=== PATIENT | female | born 1945 | race Caucasian/White ===

== ENCOUNTER 2021-01-20 10:34 | Inpatient (IN) | payer OTHER, SELFPAY ==
[2021-01-20] VITALS (34 sets, daily range): BP systolic 103–136; BP diastolic 42–92; PULSE 75–100; RESP 16–36; TEMP 36.9–37.4; O2SAT 92–99; BMI 52.2
--- NOTE | ~2021-01-20 | XR_ITS ---
EXAMINATION: XR chest 1V portable EXAM DATE: 01/20/2021 10:59 INDICATION: Shortness of breath. TECHNIQUE: Portable AP frontal chest x-ray was obtained. There is no prior study for comparison. FINDINGS: There is cardiomegaly and pulmonary vascular congestion. There is indistinct reticulation, some more focal right upper lung zone density. Differential diagnosis includes edema and pneumonia. P lease clinically correlate. No sizable pleural effusion. No pneumothorax. IMPRESSION: 1. Findings consistent with CHF exacerbation. 2. Ill-defined airspace disease more likely edema. Reviewed, dictated and finalized at location A. NICU
--- NOTE | ~2021-01-20 | XR_ITS ---
EXAMINATION: XR chest 1V portable DATE: 01/24/2021 13:16 INDICATION: Shortness of breath. TECHNIQUE: A single frontal view of the chest was obtained. COMPARISON: Chest single view 01/20/2021 FINDINGS: There are airspace opacities in right perihilar region. No pleural effusion or pneumothorax . Cardiomegaly is noted. IMPRESSION: 1. Improved airspace opacities in right perihilar region, consistent with pulmonary edema versus pneu monia. 2. Cardiomegaly. Reviewed, dictated and finalized at location A. ATRIC REGISTERED NURSE IMPRESSION: 1. Improved airspace opacities in right perihilar region, consistent with pulmo nary edema versus pneumonia. 2. Cardiomegaly.
--- NOTE | 2021-01-20 10:45 | ECG_ITS ---
Measurements Intervals [place] Rate: 89 P: MS: 0 QRS: 69 QRSD: 87 T: 63 QT: 385 QTc: 469 Interpretive Statements ATRIAL FIBRILLATION LOW QRS VOLTAGE IN PRECORDIAL LEADS ABNORMAL ECG Electronically Signed On 01-20-2021 14:19:59 INSTALL AND REPAIR TECHNICIAN by Marbin Garcia D.O.
[2021-01-20 11:09] LABS: Basophils Percent Auto 0.5 % (0.2-1.2); Eosinophils Absolute Auto 0.5 K/mm3 (0-0.3); Eosinophils Percent Auto 6.4 % (0-4.4); Hemoglobin 11.9 g/dL (12.0-15.0); Immature Granulocyte Absolute 0.07 K/mm3 (0.00-0.031); Immature Granulocyte Percent A 0.9 % (0-0.5); Lymphocytes Absolute Auto 1.61 K/mm3 (0.9-3.2); Lymphocytes Percent Auto 19.6 % (18.3-44.2); Mean Corpuscular Hemoglobin 25.9 pg (26-34); Mean Corpuscular Volume 89.1 fl (80-100); Mean Platelet Volume 8.9 fl (7.4-10.4); Monocytes Absolute Auto 0.8 K/mm3 (0.1-0.6); Monocytes Percent Auto 10.2 % (2.6-8.5); Neutrophils Absolute Auto 5.1 K/mm3 (1.3-6.7); Neutrophils Percent Auto 62.4 % (45.5-73.1); Platelet Count Result 337 k/mm3 (150-375); Red Cell Distribution Width 17.5 % (11.5-14.5); White Blood Count 8.2 K/mm3 (4.5-10.0)
[2021-01-20 11:24] LABS: Blood Urea Nitrogen 14 mg/dL (7-17); Calcium 9.3 mg/dL (8.4-10.2); Carbon Dioxide > 40 mmol/L (22-30); Chloride 96 mmol/L (98-107); Estimated CRCL calculation 98 ml/min; Estimated Glomerular Filt Rate > 60; Glucose 111 mg/dL (65-105); Potassium 3.1 mmol/L (3.4-5.0); Sodium 142 mmol/L (137-145)
[2021-01-20 11:49] LABS: Alveolar/Arterial O2 Gradient 109.3 mmHg; Base Excess ABG 12.6 mEq/l (+/-2.0); Fractional Inspired Oxygen 36 %; Oxygen Saturation ABG 93.7 % (95.0-100.0); Oxyhemoglobin 91.6 % THb (90.0-100.0); PO2 ABG 70.9 mmHg (80.0-100.0); PO2 FiO2 Ratio Arterial Blood 1.97 %; Total Hemoglobin 12.4 g/dL (12.0-18.0); pH ABG 7.401 (7.350-7.450)
[2021-01-20 11:51] LABS: PCO2 ABG 65.9 mmHg (35.0-45.0); Site Drawn LEFT RADIAL
[2021-01-20 11:52] LABS: Device NASAL CANNULA; Modified Allen's Test Pass
[2021-01-20 12:08] LABS: NT Pro B Type Natriuretic Pept 1250 PG/ML (5-100); Troponin I < 0.012 ng/mL (0.000-0.034)
[2021-01-20] MEDS: IPRATROPIUM BR 0.02% INH SOLN 0.5 MG/2.5 ML VIAL INHALATION ×2 (12:39→20:53)
[2021-01-20] MEDS: ALBUTEROL SULFATE NEB 2.5 MG/0.5 ML INH 5 MG INHALATION ×2 (12:39→21:18)
[2021-01-20] MEDS: POTASSIUM CHLORIDE 20 MEQ PACKET (FOR LIQUID) 40 MEQ PO (12:57)
[2021-01-20] MEDS: BUMETANIDE INJ 1 MG/4 ML VIAL 2 MG IV PUSH (13:33)
--- NOTE | 2021-01-20 14:05 | ED.SOB ---
HPI - SOB/Dyspnea General Chief Complaint: Shortness of Breath/Dyspnea Stated Complaint: sob Time Seen by Provider: 01/20/21 11:22 Source: patient and family Mode of arrival: EMS Limitations: no limitations History of Present Illness HPI Narrative: 75-year-old female History of COPD and is always on 1.5 to 2 L of oxygen nasal cannula Patient states that she was not really aware of anything wrong but that at her long term facility they were unhappy with her O2 saturations and had to turn her up to 4 L She was not experiencing greater dyspnea than usual, new cough, excessive wheezing, or new swelling in her legs Daughter states that she is a chronic CO2 retainer Appears to be anticoagulated for chronic A. fib as well No old records here to compare to though Related Data Home Medications Medication Instructions Recorded Confirmed Incruse Ellipta 01/20/21 albuterol sulfate [ProAir HFA] 1 puff INHALATION QID PRN 01/20/21 ascorbic acid (vitamin C) 250 mg PO DAILY 01/20/21 cholecalciferol (vitamin D3) 50 mcg PO DAILY 01/20/21 docusate sodium 100 mg PO DAILY 01/20/21 fluticasone propion-salmeterol 1 inh INHALATION Q12H 01/20/21 [Advair Diskus] furosemide 40 mg PO DAILY 01/20/21 gabapentin 300 mg PO TID 01/20/21 glucosamine sulfate 500 mg PO DAILY 01/20/21 guaifenesin [Mucinex] 1,200 mg PO BID 01/20/21 hydrocortisone 1 applic TOPICAL QID PRN 01/20/21 ipratropium-albuterol 3 ml INHALATION Q6H PRN 01/20/21 levothyroxine 175 mcg PO DAILY 01/20/21 magnesium [magnesium gluconate] 400 mg PO DAILY 01/20/21 xdgvqcskgmoe-mfp-zfnc-FA-vit K tablet PO 01/20/21 [Adults Multivitamin] nebivolol [Bystolic] 10 mg PO DAILY 01/20/21 omega 0-ccs-ucr-fish oil [Fish Oil] cap 01/20/21 oxycodone-acetaminophen 1 tablet PO Q6H PRN 01/20/21 phenyleph-shark cmj-indm-klh 1 applic RECTAL BID PRN 01/20/21 [Preparation H] polyethylene glycol 3350 [Miralax] 17 g PO DAILY 01/20/21 polysaccharide iron complex 150 mg PO DAILY 01/20/21 [Polysaccharide Iron] psyllium husk [Metamucil] 1 tbsp PO DAILY 01/20/21 rivaroxaban [Xarelto] 20 mg PO DAILY 01/20/21 roflumilast [Daliresp] 500 mcg PO DAILY 01/20/21 sertraline 50 mg PO DAILY 01/20/21 sodium chloride [[place] Nasal] 2 spray INTRANASAL QID 01/20/21 Allergies Allergy/AdvReac Type Severity Reaction Status Date / Time amoxicillin Allergy Unknown Verified 01/20/21 11:12 cetirizine [From Zyrtec] Allergy Unknown Verified 01/20/21 11:12 pseudoephedrine Allergy Unknown Verified 01/20/21 11:12 [From Zyrtec-D] sulfasalazine Allergy Unknown Verified 01/20/21 11:12 Review of Systems Review of Systems: All systems reviewed & are unremarkable except as noted in HPI and below Constitutional: Constitutional: Denies chills, Reports fatigue, Denies fever(s), Denies headache(s) and Reports weakness Eyes: Eyes: Reports no additional eye complaints and Denies change in vision ENT: Denies headache(s), Denies epistaxis, Denies nasal congestion and Denies sore throat Cardiovascular: Cardiovascular: Denies chest pain, Denies leg edema, Denies palpitations and Denies dyspnea Respiratory: Respiratory: Denies cough, Denies dyspnea and Reports wheezing Gastrointestinal: Gastrointestinal: Denies abdominal pain, Denies diarrhea, Denies nausea and Denies vomiting Genitourinary: Genitourinary: Denies hematuria, Denies urinary frequency and Denies dysuria Musculoskeletal: Musculoskeletal: Reports back pain, Denies deformity, Denies arthralgias, Denies joint swelling, Denies muscle weakness and Denies numbness Integumentary/Breasts: Skin/Breast: Denies rash and Denies wounds Neurologic: Denies headache(s), Denies focal weakness, Denies numbness and Reports weakness Psychiatric: Psychiatric: Reports no additional psychiatric complaints Endocrine: Endocrine: Reports fatigue and Denies palpitations Hematologic/Lymphatic: Hematologic/Lymphatic: Reports easy bleeding and Denies ea
[2021-01-20 14:09] LABS: Add Urine Microscopic? YES; Appearance Urine Turbid (Clear); Bacteria Urine 4+ /hpf; Bilirubin Urine Negative (Negative); Blood Urine 2+ (Negative); Color Urine Yellow (Yellow); Glucose Urine UA Negative (Negative); Ketones Urine Negative (Negative); Leukocyte Esterase Ur 3+ LEU/UL (Negative); Mucus Urine Heavy /lpf; Nitrate Urine Positive (Negative); Protein Urine 3+ mg/dL (Negative); RBC Urine >75 /hpf (0-2); Specific Grav Ur 1.012 (1.001-1.035); Urobilinogen Urine Negative mg/dL (<2.0); WBC Clumps Urine Present /HPF; WBC Urine >75 /hpf
[2021-01-20] MEDS: HYDROcodone/acetaminophen (*CRX) 5-325 MG TABLET 1 TAB PO (17:31)
--- NOTE | 2021-01-20 17:55 | ADMGEN ---
This patient, Tammy Orozco, was admitted to [facility] Room 326-01 @ 1750 . Patient/family oriented to hospital policies and general routines including ID bracelet, bed and alarms, visiting hours, pain management, procedures, bathroom and other care routines, personal items, smoking policy, room service/diet, and visiting hours. Information on how to activate the Rapid Response Team has been discussed. Patient/Family are encouraged to report perceived risks to care and to ask questions if they do not understand what they are told or what they should do.
[2021-01-20] MEDS: LACTATED RINGERS 1,000 ML 30 ML IV CONT (18:15)
--- NOTE | 2021-01-20 18:30 | PM.IMHP ---
H&P: HPI History of Present Illness Date/Time: 01/20/21 18:30 Chief Complaint: Hypoxia. Narrative: This is a 76-year-old female with chronic hypoxic and hypercapnic respiratory failure on home oxygen, asthma, obstructive sleep apnea, atrial fibrillation, congestive heart failure, hypertension, and several other comorbidities who presented to the emergency department earlier today via EMS from [facility] with reports of hypoxia. The patient is a fair historian and reports that she has some short-term memory loss and tells me that the following history might not always be accurate. She lives in [place], [place] and typically goes to [facility] however it sounds like she has been hospitalized in several hospitals throughout the region recently although she cannot really tell me why she has been admitted to these hospitals. She is currently doing rehab at [facility] and it sounds like she was supposed to be discharged in the next several days. Today staff at the rehab facility decided to sent her in for evaluation as she was requiring 4 liters of oxygen as opposed to her baseline 1.5 to 2 liters. The patient herself has not noticed any change in her breathing and does not necessarily feel any more short of breath than usual with activity. The only complaint she has at the time my evaluation is some mild suprapubic discomfort and she does note having dysuria recently. She denies fever, chills, sweats, sinus congestion, otalgia, odynophagia, cough, chest pain, pleuritic pain, orthopnea, PND, lower extremity edema, nausea, vomiting, and diarrhea. Review of Systems Review of Systems: Narrative: Twelve systems are reviewed with pertinent positives and negatives as per HPI. Somewhat limited given her self-reported memory loss. Except as documented, all other systems were reviewed and are negative. [facility] Past Medical History Medical History (Updated 01/20/21 @ 22:41 by Kaur Michael PA-C) Atrial fibrillation Chronic anticoagulation Chronic obstructive pulmonary disease Chronic respiratory failure with hypoxia and hypercapnia Congestive heart failure Dyslipidemia Hypertension Hypothyroidism Morbid obesity Obstructive sleep apnea on CPAP On home oxygen therapy Renal disease Spinal stenosis Surgical History Surgical History (Updated 01/20/21 @ 22:31 by Kaur Michael PA-C) History of foot surgery Removal of bone spurs. Family History Family History Mother Cerebrovascular accident Father H/O heart bypass surgery Sibling Double kidney Social History Social History (Updated 01/20/21 @ 22:32 by Kaur Michael PA-C) Social History: The patient is currently undergoing rehab at [facility]. 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 She has an electric scooter at home. She smoked a pack of cigarettes per day for about 30 years and quit some time ago. No alcohol or illicit substance abuse. She designates her and her daughter Tayla Miles as her surrogate decision makers and she wishes to be a full code. Smoking packs per day: 1 Smoking cigarettes per day: 20.0 Years smoked: 30 Smoking pack-years: 30.00 Smoking status: Former smoker Tobacco type: cigarettes Alcohol intake: never Substance use: never Gender identity (if verbalized by the patient): Female Spiritual care concerns: No Meds Home Medications and Allergies Home Medications Medication Instructions Recorded Confirmed Type Incruse Ellipta 62.5 mcg INHALATION DAILY 01/20/21 01/20/21 History albuterol sulfate [ProAir HFA] 1 - 2 puff INHALATION QID PRN 01/20/21 01/20/21 History ascorbic acid (vitamin C) 250 mg PO DAILY 01/20/21 01/20/21 History cholecalciferol (vitamin D3) 50 mcg PO DAILY 01/20/21 01/20/21 History docusate sodium 100 mg PO DAILY 01/20/2101/20
[2021-01-20] MEDS: GABAPENTIN 300 MG CAPSULE PO (23:53)
[2021-01-20] MEDS: guaiFENesin 12 HR 600 MG TABCR 1200 MG PO (23:53)
[2021-01-21] VITALS (17 sets, daily range): BP systolic 109–142; BP diastolic 60–87; PULSE 73–94; RESP 18–24; TEMP 36.4–37.3; O2SAT 92–94
[2021-01-21] MEDS: IPRATROPIUM BR 0.02% INH SOLN 0.5 MG/2.5 ML VIAL INHALATION ×4 (02:35→22:29)
[2021-01-21] MEDS: ALBUTEROL SULFATE NEB 2.5 MG/0.5 ML INH 5 MG INHALATION ×4 (02:35→22:29)
[2021-01-21] MEDS: LEVOTHYROXINE SODIUM 75 MCG TABLET PO (05:43)
[2021-01-21] MEDS: LEVOTHYROXINE SODIUM 100 MCG TABLET PO (05:44)
[2021-01-21 06:17] LABS: Alanine Aminotransferase 11 U/L (4-35); Alkaline Phosphatase 40 U/L (38-126); Aspartate Amino Transferase 17 U/L (14-36); Bilirubin,Total 0.2 mg/dL (0.2-1.3); Blood Urea Nitrogen 15 mg/dL (7-17); Calcium 8.6 mg/dL (8.4-10.2); Carbon Dioxide > 40 mmol/L (22-30); Chloride 96 mmol/L (98-107); Estimated CRCL calculation 75 ml/min; Estimated Glomerular Filt Rate > 60; Glucose 170 mg/dL (65-105); Magnesium 1.6 mg/dL (1.6-2.3); Potassium 3.2 mmol/L (3.4-5.0); Sodium 143 mmol/L (137-145)
[2021-01-21 06:56] LABS: Hematocrit 37.6 % (37.0-47.0); Hemoglobin 11.1 g/dL (12.0-15.0); Mean Corpuscular HGB Conc 29.5 g/dl (32-36); Mean Corpuscular Hemoglobin 25.8 pg (26-34); Mean Corpuscular Volume 87.4 fl (80-100); Mean Platelet Volume 9.5 fl (7.4-10.4); Platelet Count Result 380 k/mm3 (150-375); Red Cell Distribution Width 17.2 % (11.5-14.5); White Blood Count 9.1 K/mm3 (4.5-10.0)
[2021-01-21 07:47] LABS: Free T4 Free Thyroxine Reflex 1.52 ng/dL (0.78-2.19)
[2021-01-21] MEDS: FLUTICASONE/SALMETEROL 45-21 MCG INHALER 1 PUFF 2 PUFF INHALATION ×2 (08:18→22:29)
[2021-01-21] MEDS: ROFLUMILAST 500 MCG TABLET PO (08:56)
[2021-01-21] MEDS: guaiFENesin 12 HR 600 MG TABCR 1200 MG PO ×2 (08:57→20:37)
[2021-01-21] MEDS: GABAPENTIN 300 MG CAPSULE PO ×3 (08:57→16:28)
[2021-01-21] MEDS: MULTIVITAMINS /C LUTEIN (CENTRUM SILVER) TABLET *BKC 1 TAB PO (08:58)
[2021-01-21] MEDS: NEBIVOLOL HCL 5 MG TABLET 10 MG PO (08:58)
[2021-01-21] MEDS: POTASSIUM CHLORIDE 20 MEQ TABLET.ER PO (08:59)
[2021-01-21] MEDS: POTASSIUM CHLORIDE 20 MEQ TABLET 40 MEQ PO (08:59)
[2021-01-21] MEDS: MAGNESIUM OXIDE 400 MG TABLET PO ×2 (08:59→09:02)
[2021-01-21] MEDS: FUROSEMIDE INJ 40 MG/4 ML VIAL IV PUSH ×2 (08:59→16:28)
[2021-01-21] MEDS: ASCORBIC ACID 250 MG TABLET PO (09:00)
[2021-01-21] MEDS: SERTRALINE HCL 50 MG TABLET PO (09:00)
[2021-01-21] MEDS: OMEGA 3 POLYUNSAT FATTY ACIDS 1 GM CAP PO (09:00)
[2021-01-21] MEDS: CHOLECALCIFEROL 1,000 UNITS TABLET 1000 UNITS PO (09:00)
[2021-01-21] MEDS: SALINE 0.65% NAS SOLN 44 ML BTL 1 SPRAY NASAL ×3 (09:00→16:29)
[2021-01-21] MEDS: POLYSACCHARIDE IRON COMPLEX 150 MG CAPSULE PO (09:00)
[2021-01-21] MEDS: predniSONE 20 MG TABLET 60 MG PO (09:01)
[2021-01-21 09:07] LABS: Total Triiodothyronine (T3) 0.68 NG/ML (0.97-1.69)
[2021-01-21] MEDS: ACETAMINOPHEN 325 MG TABLET 650 MG PO (12:49)
--- NOTE | 2021-01-21 13:31 | PM.IMPN ---
Progress Note: A&P Assessment and Plan (1) Acute on chronic respiratory failure with hypoxia and hypercapnia: Code(s): J96.21 - Acute and chronic respiratory failure with hypoxia; J96.22 - Acute and chronic respiratory failure with hypercapnia Status: Acute Assessment and Plan: 01/21/21 13:31 patient is 75-year-old morbidly obese female had been at local rehab for physical therapy and was found to be desaturate and requiring 4 L of oxygen compare to her regular 2 L of oxygen and patient was sent to emergency department for further evaluation, patient states she did not feel as short of breath as she appeared however with exertion patient was requiring 4 L of oxygen, chest x-ray shows pulmonary edema, and no echo is available is patient does not come to hospital regularly, patient being diuresed IV Lasix 40 mg b.i.d., patient also complains dysuria and frequency of urination patient states she has a history of recurrent UTI, Patient is treated with Rocephin will follow-up urine culture and sensitivity, patient is suspected may have a COVID-19 tested an isolated, patient has no fever and requiring 3 L of oxygen at rest, currently patient denies any cough or shortness of breath fever or chills. Will follow-up on urine culture (2) Acute exacerbation of congestive heart failure: Code(s): I50.9 - Heart failure, unspecified Status: Acute Assessment and Plan: Patient being diuresed (3) Hypokalemia: Code(s): E87.6 - Hypokalemia Status: Acute Assessment and Plan: Will monitor and supplement (4) Atrial fibrillation: Code(s): I48.91 - Unspecified atrial fibrillation Status: Chronic Assessment and Plan: Rate is controlled anticoagulated with Xarelto (5) Chronic anticoagulation: Code(s): Z79.01 - intermediate project manager (current) use of anticoagulants Status: Chronic Assessment and Plan: Clinically stable (6) Hypothyroidism: Code(s): E03.9 - Hypothyroidism, unspecified Status: Chronic (7) Obstructive sleep apnea on CPAP: Code(s): G47.33 - Obstructive sleep apnea (adult) (pediatric); Z99.89 - Dependence on other enabling machines and devices Status: Chronic Assessment and Plan: Will continue CPAP (8) Hypertension: Code(s): I10 - Essential (primary) hypertension Status: Chronic Assessment and Plan: Will continue home regimen (9) Urinary tract infection: Code(s): N39.0 - Urinary tract infection, site not specified Status: Acute Assessment and Plan: Patient being treated with Rocephin will follow-up urine culture and sensitivity (10) Chronic obstructive pulmonary disease: Code(s): J44.9 - Chronic obstructive pulmonary disease, unspecified Status: Acute Assessment and Plan: Patient being treated with prednisone and updraft Additional Plan The patient has acute on chronic respiratory failure with worsening hypoxia, felt to be related to CHF and mild COPD exacerbation. Pulmonary embolism is unlikely as she is on anticoagulation and her history does not suggest underlying pneumonia. She will be diuresed with close monitoring of her volume status and renal function. I have also started her on a short burst of prednisone given her wheezing. Continue home respiratory regimen. ABG demonstrates a compensated, chronic respiratory acidosis. She has had symptoms of urinary tract infection her urinalysis is markedly abnormal thus will start her on antibiotics, pending urine culture. Her AFib is rate controlled and we will continue rivaroxaban for stroke prophylaxis. CPAP will be provided for the patient to use while hospitalized. Continue levothyroxine and check TSH. Her potassium is low and will be replaced and monitored closely while diuresing. Her blood pressures were reviewed and they are stable. Home medications will be reviewed and resumed as appropriate. Subjective Date/time see
[2021-01-21] MEDS: RIVAROXABAN 20 MG TABLET PO (16:28)
[2021-01-21 18:02] LABS: SARS-CoV-2 RNA PCR Negative
[2021-01-21] MEDS: MELATONIN 3 MG TABLET PO (20:37)
[2021-01-22] VITALS (14 sets, daily range): BP systolic 98–145; BP diastolic 58–82; PULSE 70–200; RESP 13–22; TEMP 36–36.9; O2SAT 91–95
[2021-01-22] MEDS: IPRATROPIUM BR 0.02% INH SOLN 0.5 MG/2.5 ML VIAL INHALATION ×4 (03:35→20:22)
[2021-01-22] MEDS: ALBUTEROL SULFATE NEB 2.5 MG/0.5 ML INH 5 MG INHALATION ×4 (03:36→20:22)
--- NOTE | 2021-01-22 05:04 | PC.NURSE ---
Patient expressed concern over the concept of her being on Lasix and being sent home.. She said she cannot afford the alf due to insurance and is very worried about what that means for her, because in her words, her is no caregiver ... I told her that between the doctor and care coordination we will make sure we have a good plan before discharging her. Will pass this info on to the day nurse to promote continuity of care for Ms. Orozco. -AEW RN
[2021-01-22] MEDS: LEVOTHYROXINE SODIUM 75 MCG TABLET PO (05:44)
[2021-01-22] MEDS: LEVOTHYROXINE SODIUM 100 MCG TABLET PO (05:44)
[2021-01-22 05:51] LABS: Hematocrit 39.2 % (37.0-47.0); Hemoglobin 11.6 g/dL (12.0-15.0); Mean Corpuscular HGB Conc 29.6 g/dl (32-36); Mean Corpuscular Hemoglobin 25.2 pg (26-34); Mean Platelet Volume 8.8 fl (7.4-10.4); Platelet Count Result 399 k/mm3 (150-375); Red Blood Count 4.61 M/mm3 (4.2-5.4); Red Cell Distribution Width 17.3 % (11.5-14.5); White Blood Count 11.9 K/mm3 (4.5-10.0)
[2021-01-22 06:08] LABS: Blood Urea Nitrogen 22 mg/dL (7-17); Calcium 8.4 mg/dL (8.4-10.2); Carbon Dioxide > 40 mmol/L (22-30); Chloride 94 mmol/L (98-107); Estimated CRCL calculation 75 ml/min; Estimated Glomerular Filt Rate > 60; Glucose 97 mg/dL (65-105); Magnesium 1.9 mg/dL (1.6-2.3); Potassium 3.7 mmol/L (3.4-5.0); Sodium 142 mmol/L (137-145)
[2021-01-22] MEDS: FLUTICASONE/SALMETEROL 45-21 MCG INHALER 1 PUFF 2 PUFF INHALATION ×2 (08:21→20:21)
[2021-01-22] MEDS: SERTRALINE HCL 50 MG TABLET PO (08:39)
[2021-01-22] MEDS: GABAPENTIN 300 MG CAPSULE PO ×3 (08:40→16:54)
[2021-01-22] MEDS: guaiFENesin 12 HR 600 MG TABCR 1200 MG PO ×2 (08:40→20:30)
[2021-01-22] MEDS: DOCUSATE SODIUM 100 MG CAPSULE PO (08:40)
[2021-01-22] MEDS: POTASSIUM CHLORIDE 20 MEQ TABLET.ER PO (08:41)
[2021-01-22] MEDS: predniSONE 20 MG TABLET 60 MG PO (08:41)
[2021-01-22] MEDS: NEBIVOLOL HCL 5 MG TABLET 10 MG PO (08:42)
[2021-01-22] MEDS: MULTIVITAMINS /C LUTEIN (CENTRUM SILVER) TABLET *BKC 1 TAB PO (08:42)
[2021-01-22] MEDS: MAGNESIUM OXIDE 400 MG TABLET PO (08:42)
[2021-01-22] MEDS: OMEGA 3 POLYUNSAT FATTY ACIDS 1 GM CAP PO (08:47)
[2021-01-22] MEDS: CHOLECALCIFEROL 1,000 UNITS TABLET 1000 UNITS PO (08:48)
[2021-01-22] MEDS: POLYSACCHARIDE IRON COMPLEX 150 MG CAPSULE PO (08:48)
[2021-01-22] MEDS: FUROSEMIDE INJ 40 MG/4 ML VIAL IV PUSH ×2 (08:49→16:54)
[2021-01-22] MEDS: ASCORBIC ACID 250 MG TABLET PO (08:49)
[2021-01-22] MEDS: SALINE 0.65% NAS SOLN 44 ML BTL 1 SPRAY NASAL ×3 (08:51→16:55)
[2021-01-22] MEDS: ROFLUMILAST 500 MCG TABLET PO (10:05)
[2021-01-22] MEDS: ACETAMINOPHEN 325 MG TABLET 650 MG PO (14:30)
--- NOTE | 2021-01-22 16:52 | PM.IMPN ---
Progress Note: A&P Assessment and Plan (1) Acute on chronic respiratory failure with hypoxia and hypercapnia: Code(s): J96.21 - Acute and chronic respiratory failure with hypoxia; J96.22 - Acute and chronic respiratory failure with hypercapnia Status: Acute Assessment and Plan: Interval history : 75-year-old morbidly obese female had been at local rehab for physical therapy and was found to be desaturate and requiring 4 L of oxygen compare to her regular 2 L of oxygen and patient was sent to emergency department for further evaluation, patient states she did not feel as short of breath as she appeared however with exertion patient was requiring 4 L of oxygen, chest x-ray shows pulmonary edema, and no echo is available is patient does not come to hospital regularly, patient being diuresed IV Lasix 40 mg b.i.d., patient also complains dysuria and frequency of urination patient states she has a history of recurrent UTI, Patient is treated with Rocephin will follow-up urine culture and sensitivity. Pt is being treated for UTI and chf exacerbation and copd exacerbation Pt had negative covid test on 01/20/2021 (2) Acute exacerbation of congestive heart failure: Code(s): I50.9 - Heart failure, unspecified Status: Acute Assessment and Plan: Patient being diuresed with iv lasix (3) Hypokalemia: Code(s): E87.6 - Hypokalemia Status: Resolved Assessment and Plan: Resolved (4) Atrial fibrillation: Code(s): I48.91 - Unspecified atrial fibrillation Status: Chronic Assessment and Plan: Rate is controlled anticoagulated with Xarelto (5) Chronic anticoagulation: Code(s): Z79.01 - intermediate (current) use of anticoagulants Status: Chronic Assessment and Plan: Clinically stable (6) Hypothyroidism: Code(s): E03.9 - Hypothyroidism, unspecified Status: Chronic (7) Obstructive sleep apnea on CPAP: Code(s): G47.33 - Obstructive sleep apnea (adult) (pediatric); Z99.89 - Dependence on other enabling machines and devices Status: Chronic Assessment and Plan: Continue CPAP (8) Hypertension: Code(s): I10 - Essential (primary) hypertension Status: Chronic Assessment and Plan: Continue home regimen (9) Urinary tract infection: Code(s): N39.0 - Urinary tract infection, site not specified Status: Acute Assessment and Plan: Treated with Rocephin will follow-up urine culture and sensitivity (10) Chronic obstructive pulmonary disease: Code(s): J44.9 - Chronic obstructive pulmonary disease, unspecified Status: Acute Assessment and Plan: Treated with prednisone and updraft Subjective Date/time seen: 01/22/21 16:52 Interval history: 75-year-old morbidly obese female had been at local rehab for physical therapy and was found to be desaturate and requiring 4 L of oxygen compare to her regular 2 L of oxygen and patient was sent to emergency department for further evaluation, patient states she did not feel as short of breath as she appeared however with exertion patient was requiring 4 L of oxygen, chest x-ray shows pulmonary edema, and no echo is available is patient does not come to hospital regularly, patient being diuresed IV Lasix 40 mg b.i.d., patient also complains dysuria and frequency of urination patient states she has a history of recurrent UTI, Patient is treated with Rocephin will follow-up urine culture and sensitivity. Pt had negative covid test on 01/20/2021. Review of Systems Review of Systems: All systems reviewed & are unremarkable except as noted in HPI and below Exam Narrative: Exam Narrative: Morbidly obese Patient is comfortable LUNGS: Normal respiratory effort HEART: RR S1S2 ABD0: Distended, catheter in situ Lower extremities: no edema SKIN: nonjaundiced Neuro: generalized weakness Objective Data Vital Signs Vital Signs: Vital Signs - 24 hr
[2021-01-22] MEDS: RIVAROXABAN 20 MG TABLET PO (16:54)
[2021-01-22] MEDS: MELATONIN 3 MG TABLET PO (20:29)
[2021-01-22 22:47] LABS: SARS-CoV-2 RNA PCR Negative
[2021-01-23] VITALS (13 sets, daily range): BP systolic 97–138; BP diastolic 55–76; PULSE 72–93; RESP 18–20; TEMP 36.4–37.1; O2SAT 93–97
[2021-01-23] MEDS: ALBUTEROL SULFATE NEB 2.5 MG/0.5 ML INH 5 MG INHALATION ×4 (02:01→20:35)
[2021-01-23] MEDS: IPRATROPIUM BR 0.02% INH SOLN 0.5 MG/2.5 ML VIAL INHALATION ×4 (02:01→20:35)
[2021-01-23 05:50] LABS: Hematocrit 40.9 % (37.0-47.0); Hemoglobin 12.1 g/dL (12.0-15.0); Mean Corpuscular HGB Conc 29.6 g/dl (32-36); Mean Corpuscular Hemoglobin 25.1 pg (26-34); Mean Corpuscular Volume 84.9 fl (80-100); Mean Platelet Volume 8.9 fl (7.4-10.4); Platelet Count Result 397 k/mm3 (150-375); Red Blood Count 4.82 M/mm3 (4.2-5.4); Red Cell Distribution Width 17.7 % (11.5-14.5)
[2021-01-23 06:03] LABS: Blood Urea Nitrogen 29 mg/dL (7-17); Calcium 8.8 mg/dL (8.4-10.2); Carbon Dioxide > 40 mmol/L (22-30); Chloride 92 mmol/L (98-107); Estimated CRCL calculation 75 ml/min; Estimated Glomerular Filt Rate > 60; Glucose 100 mg/dL (65-105); Sodium 141 mmol/L (137-145)
[2021-01-23] MEDS: LEVOTHYROXINE SODIUM 75 MCG TABLET PO (06:30)
[2021-01-23] MEDS: LEVOTHYROXINE SODIUM 100 MCG TABLET PO (06:32)
[2021-01-23] MEDS: FLUTICASONE/SALMETEROL 45-21 MCG INHALER 1 PUFF 2 PUFF INHALATION ×2 (09:07→20:36)
[2021-01-23] MEDS: POTASSIUM CHLORIDE 20 MEQ TABLET.ER PO (10:04)
[2021-01-23] MEDS: POLYSACCHARIDE IRON COMPLEX 150 MG CAPSULE PO (10:04)
[2021-01-23] MEDS: ASCORBIC ACID 250 MG TABLET PO (10:05)
[2021-01-23] MEDS: predniSONE 20 MG TABLET 60 MG PO (10:05)
[2021-01-23] MEDS: FUROSEMIDE INJ 40 MG/4 ML VIAL IV PUSH ×2 (10:06→18:08)
[2021-01-23] MEDS: CHOLECALCIFEROL 1,000 UNITS TABLET 1000 UNITS PO (10:06)
[2021-01-23] MEDS: DOCUSATE SODIUM 100 MG CAPSULE PO (10:06)
[2021-01-23] MEDS: GABAPENTIN 300 MG CAPSULE PO ×3 (10:07→18:09)
[2021-01-23] MEDS: guaiFENesin 12 HR 600 MG TABCR 1200 MG PO ×2 (10:07→20:30)
[2021-01-23] MEDS: MULTIVITAMINS /C LUTEIN (CENTRUM SILVER) TABLET *BKC 1 TAB PO (10:08)
[2021-01-23] MEDS: MAGNESIUM OXIDE 400 MG TABLET PO (10:08)
[2021-01-23] MEDS: NEBIVOLOL HCL 5 MG TABLET 10 MG PO (10:09)
[2021-01-23] MEDS: OMEGA 3 POLYUNSAT FATTY ACIDS 1 GM CAP PO (10:09)
[2021-01-23] MEDS: polyethylene glycoL 3350 17 GM POWD.PACK PO (10:10)
[2021-01-23] MEDS: SALINE 0.65% NAS SOLN 44 ML BTL 1 SPRAY NASAL ×3 (10:11→18:09)
[2021-01-23] MEDS: ROFLUMILAST 500 MCG TABLET PO (10:11)
[2021-01-23] MEDS: PSYLLIUM POWDER PACKET 1 PACKET PO (10:11)
[2021-01-23] MEDS: SERTRALINE HCL 50 MG TABLET PO (10:12)
--- NOTE | 2021-01-23 16:21 | PM.IMPN ---
Progress Note: A&P Assessment and Plan (1) Acute on chronic respiratory failure with hypoxia and hypercapnia: Code(s): J96.21 - Acute and chronic respiratory failure with hypoxia; J96.22 - Acute and chronic respiratory failure with hypercapnia Status: Acute Assessment and Plan: Interval history : 75-year-old morbidly obese female had been at local rehab for physical therapy and was found to be desaturate and requiring 4 L of oxygen compare to her regular 2 L of oxygen and patient was sent to emergency department for further evaluation, patient states she did not feel as short of breath as she appeared however with exertion patient was requiring 4 L of oxygen, chest x-ray shows pulmonary edema, and no echo is available is patient does not come to hospital regularly, patient being diuresed IV Lasix 40 mg b.i.d., patient also complains dysuria and frequency of urination patient states she has a history of recurrent UTI, Patient is treated with Rocephin will follow-up urine culture and sensitivity. Pt is being treated for UTI and chf exacerbation and copd exacerbation Pt had negative covid test on 01/20/2021 (2) Acute exacerbation of congestive heart failure: Code(s): I50.9 - Heart failure, unspecified Status: Acute Assessment and Plan: Patient being diuresed with iv lasix (3) Hypokalemia: Code(s): E87.6 - Hypokalemia Status: Resolved Assessment and Plan: Resolved (4) Atrial fibrillation: Code(s): I48.91 - Unspecified atrial fibrillation Status: Chronic Assessment and Plan: Rate is controlled anticoagulated with Xarelto (5) Chronic anticoagulation: Code(s): Z79.01 - senior living (current) use of anticoagulants Status: Chronic Assessment and Plan: Clinically stable (6) Hypothyroidism: Code(s): E03.9 - Hypothyroidism, unspecified Status: Chronic (7) Obstructive sleep apnea on CPAP: Code(s): G47.33 - Obstructive sleep apnea (adult) (pediatric); Z99.89 - Dependence on other enabling machines and devices Status: Chronic Assessment and Plan: Continue CPAP (8) Hypertension: Code(s): I10 - Essential (primary) hypertension Status: Chronic Assessment and Plan: Continue home regimen (9) Urinary tract infection: Code(s): N39.0 - Urinary tract infection, site not specified Status: Acute Assessment and Plan: Treated with Rocephin, urine culture are seen (10) Chronic obstructive pulmonary disease: Code(s): J44.9 - Chronic obstructive pulmonary disease, unspecified Status: Acute Assessment and Plan: Treated with prednisone and updraft (11) Breast lump: Code(s): N63.0 - Unspecified lump in unspecified breast Status: Acute Assessment and Plan: R breast with lumps order MRI BREAST in the morning stat Subjective Date/time seen: 01/23/21 16:21 Interval history: 75-year-old morbidly obese female had been at local rehab for physical therapy and was found to be desaturate and requiring 4 L of oxygen compare to her regular 2 L of oxygen and patient was sent to emergency department for further evaluation, patient states she did not feel as short of breath as she appeared however with exertion patient was requiring 4 L of oxygen, chest x-ray shows pulmonary edema, and no echo is available is patient does not come to hospital regularly, patient being diuresed IV Lasix 40 mg b.i.d., patient also complains dysuria and frequency of urination patient states she has a history of recurrent UTI, Patient is treated with Rocephin will follow-up urine culture and sensitivity. Pt had negative covid test on 01/20/2021. Pt has lumps in her right breast. Review of Systems Review of Systems: All systems reviewed & are unremarkable except as noted in HPI and below Exam Narrative: Exam Narrative: Morbidly obese Patient is comfortable BREAST EXAMINATION: R breast
[2021-01-23] MEDS: RIVAROXABAN 20 MG TABLET PO (18:09)
[2021-01-23] MEDS: MELATONIN 3 MG TABLET PO (20:30)
[2021-01-24] VITALS (15 sets, daily range): BP systolic 115–136; BP diastolic 50–90; PULSE 72–94; RESP 19–20; TEMP 36.2–37.1; O2SAT 93–97
[2021-01-24] MEDS: ALBUTEROL SULFATE NEB 2.5 MG/0.5 ML INH 5 MG INHALATION ×4 (02:33→20:29)
[2021-01-24] MEDS: IPRATROPIUM BR 0.02% INH SOLN 0.5 MG/2.5 ML VIAL INHALATION ×4 (02:34→20:29)
[2021-01-24] MEDS: oxyCODONE/ACETAMINOPHEN (*CRX) 5-325 MG TABLET 1 TABLET PO (05:25)
[2021-01-24] MEDS: LEVOTHYROXINE SODIUM 100 MCG TABLET PO (05:36)
[2021-01-24] MEDS: LEVOTHYROXINE SODIUM 75 MCG TABLET PO (05:36)
[2021-01-24 06:12] LABS: Hematocrit 42.3 % (37.0-47.0); Hemoglobin 12.7 g/dL (12.0-15.0); Mean Corpuscular Hemoglobin 25.8 pg (26-34); Mean Platelet Volume 9.2 fl (7.4-10.4); Platelet Count Result 420 k/mm3 (150-375); Red Blood Count 4.92 M/mm3 (4.2-5.4); Red Cell Distribution Width 18.2 % (11.5-14.5); White Blood Count 14.4 K/mm3 (4.5-10.0)
[2021-01-24 06:23] LABS: Blood Urea Nitrogen 27 mg/dL (7-17); Calcium 9.2 mg/dL (8.4-10.2); Carbon Dioxide > 40 mmol/L (22-30); Chloride 96 mmol/L (98-107); Estimated CRCL calculation 75 ml/min; Estimated Glomerular Filt Rate > 60; Glucose 87 mg/dL (65-105); Potassium 3.9 mmol/L (3.4-5.0); Sodium 140 mmol/L (137-145)
[2021-01-24] MEDS: POLYSACCHARIDE IRON COMPLEX 150 MG CAPSULE PO (08:20)
[2021-01-24] MEDS: MAGNESIUM OXIDE 400 MG TABLET PO (08:21)
[2021-01-24] MEDS: CHOLECALCIFEROL 1,000 UNITS TABLET 1000 UNITS PO (08:21)
[2021-01-24] MEDS: guaiFENesin 12 HR 600 MG TABCR 1200 MG PO ×2 (08:21→20:14)
[2021-01-24] MEDS: POTASSIUM CHLORIDE 20 MEQ TABLET.ER PO (08:21)
[2021-01-24] MEDS: ROFLUMILAST 500 MCG TABLET PO (08:21)
[2021-01-24] MEDS: SALINE 0.65% NAS SOLN 44 ML BTL 1 SPRAY NASAL ×3 (08:22→16:27)
[2021-01-24] MEDS: GABAPENTIN 300 MG CAPSULE PO ×3 (08:23→16:27)
[2021-01-24] MEDS: ASCORBIC ACID 250 MG TABLET PO (08:23)
[2021-01-24] MEDS: predniSONE 20 MG TABLET 60 MG PO (08:23)
[2021-01-24] MEDS: FUROSEMIDE INJ 40 MG/4 ML VIAL IV PUSH (08:23)
[2021-01-24] MEDS: DOCUSATE SODIUM 100 MG CAPSULE PO (08:23)
[2021-01-24] MEDS: FLUTICASONE/SALMETEROL 45-21 MCG INHALER 1 PUFF 2 PUFF INHALATION ×2 (08:23→20:30)
[2021-01-24] MEDS: SERTRALINE HCL 50 MG TABLET PO (08:24)
[2021-01-24] MEDS: NEBIVOLOL HCL 5 MG TABLET 10 MG PO (08:24)
[2021-01-24] MEDS: OMEGA 3 POLYUNSAT FATTY ACIDS 1 GM CAP PO (08:24)
[2021-01-24] MEDS: MULTIVITAMINS /C LUTEIN (CENTRUM SILVER) TABLET *BKC 1 TAB PO (08:24)
--- NOTE | 2021-01-24 12:02 | PC.NURSE ---
Spoke with patient and her daughter Tayla at length about recommendations from radiology to have outpatient diagnostic mammogram. Daughter had concerns about patient inability to stand for procedure. I spoke with radiology and verified that there were chairs available for patients unable to stand within [facility] location. Daughter also stated that patient had recently received the COVID 19 Vaccine in arm nearest to effected breast and felt there were no concerns of this until after the vaccine had been received. Clarified with radiology that mammograms should not be complete until 90 days after vaccine administration. All of this information has been shared with daughter Tayla and patient Tammy. Dr Delacruz has also been made aware of need on an outpatient procedure.
--- NOTE | 2021-01-24 12:44 | PM.IMPN ---
Progress Note: A&P Assessment and Plan (1) Acute on chronic respiratory failure with hypoxia and hypercapnia: Code(s): J96.21 - Acute and chronic respiratory failure with hypoxia; J96.22 - Acute and chronic respiratory failure with hypercapnia Status: Acute Assessment and Plan: Interval history : 75-year-old morbidly obese female had been at local rehab for physical therapy and was found to be desaturate and requiring 4 L of oxygen compare to her regular 2 L of oxygen and patient was sent to emergency department for further evaluation, patient states she did not feel as short of breath as she appeared however with exertion patient was requiring 4 L of oxygen, chest x-ray shows pulmonary edema, and no echo is available is patient does not come to hospital regularly, patient being diuresed IV Lasix 40 mg b.i.d., patient also complains dysuria and frequency of urination patient states she has a history of recurrent UTI, Patient is treated with Rocephin will follow-up urine culture and sensitivity. Pt is being treated for UTI and chf exacerbation and copd exacerbation Pt had negative covid test on 01/20/2021 (2) Acute exacerbation of congestive heart failure: Code(s): I50.9 - Heart failure, unspecified Status: Resolved Assessment and Plan: Patient being diuresed with iv Lasix transition to oral Lasix. (3) Hypokalemia: Code(s): E87.6 - Hypokalemia Status: Resolved Assessment and Plan: Resolved (4) Atrial fibrillation: Code(s): I48.91 - Unspecified atrial fibrillation Status: Chronic Assessment and Plan: Rate is controlled anticoagulated with Xarelto (5) Chronic anticoagulation: Code(s): Z79.01 - [facility] (current) use of anticoagulants Status: Chronic Assessment and Plan: Clinically stable (6) Hypothyroidism: Code(s): E03.9 - Hypothyroidism, unspecified Status: Chronic (7) Obstructive sleep apnea on CPAP: Code(s): G47.33 - Obstructive sleep apnea (adult) (pediatric); Z99.89 - Dependence on other enabling machines and devices Status: Chronic Assessment and Plan: Continue CPAP (8) Hypertension: Code(s): I10 - Essential (primary) hypertension Status: Chronic Assessment and Plan: Continue home regimen (9) Urinary tract infection: Code(s): N39.0 - Urinary tract infection, site not specified Status: Acute Assessment and Plan: Treated with Rocephin, urine culture are seen (10) Chronic obstructive pulmonary disease: Code(s): J44.9 - Chronic obstructive pulmonary disease, unspecified Status: Acute Assessment and Plan: Treated with prednisone and updraft (11) Breast lump: Code(s): N63.0 - Unspecified lump in unspecified breast Status: Acute Assessment and Plan: R breast with lumps pt will benefit from MMG on discharge Subjective Date/time seen: 01/24/21 12:44 Interval history: 75-year-old morbidly obese female had been at local rehab for physical therapy and was found to be desaturate and requiring 4 L of oxygen compare to her regular 2 L of oxygen and patient was sent to emergency department for further evaluation, patient states she did not feel as short of breath as she appeared however with exertion patient was requiring 4 L of oxygen, chest x-ray shows pulmonary edema, and no echo is available is patient does not come to hospital regularly, patient being diuresed IV Lasix 40 mg b.i.d., patient also complains dysuria and frequency of urination patient states she has a history of recurrent UTI, Patient is treated with Rocephin will follow-up urine culture and sensitivity. Pt had negative covid test on 01/20/2021. Pt has lumps in her right breast. pt will benefit from MMG on discharge. Review of Systems Review of Systems: All systems reviewed & are unremarkable except as noted in HPI and below Exam Narrative: Exam Narrative:
[2021-01-24] MEDS: RIVAROXABAN 20 MG TABLET PO (16:27)
[2021-01-24] MEDS: MELATONIN 3 MG TABLET PO (20:14)
[2021-01-25] VITALS (13 sets, daily range): BP systolic 109–118; BP diastolic 42–69; PULSE 78–109; RESP 18–24; TEMP 36.6–36.9; O2SAT 93–96
[2021-01-25] MEDS: ALBUTEROL SULFATE NEB 2.5 MG/0.5 ML INH 5 MG INHALATION ×4 (02:14→21:22)
[2021-01-25] MEDS: IPRATROPIUM BR 0.02% INH SOLN 0.5 MG/2.5 ML VIAL INHALATION ×4 (02:14→21:23)
[2021-01-25] MEDS: oxyCODONE/ACETAMINOPHEN (*CRX) 5-325 MG TABLET 1 TABLET PO ×2 (05:54→19:08)
[2021-01-25] MEDS: LEVOTHYROXINE SODIUM 100 MCG TABLET PO (05:55)
[2021-01-25] MEDS: LEVOTHYROXINE SODIUM 75 MCG TABLET PO (05:55)
[2021-01-25 05:59] LABS: Hematocrit 41.7 % (37.0-47.0); Hemoglobin 12.3 g/dL (12.0-15.0); Mean Corpuscular HGB Conc 29.5 g/dl (32-36); Mean Corpuscular Volume 84.8 fl (80-100); Mean Platelet Volume 9.1 fl (7.4-10.4); Platelet Count Result 414 k/mm3 (150-375); Red Blood Count 4.92 M/mm3 (4.2-5.4); Red Cell Distribution Width 18.2 % (11.5-14.5); White Blood Count 13.9 K/mm3 (4.5-10.0)
[2021-01-25 06:38] LABS: Blood Urea Nitrogen 33 mg/dL (7-17); Calcium 8.9 mg/dL (8.4-10.2); Carbon Dioxide > 40 mmol/L (22-30); Chloride 98 mmol/L (98-107); Estimated CRCL calculation 61 ml/min; Estimated Glomerular Filt Rate 54; Glucose 100 mg/dL (65-105); Potassium 4.2 mmol/L (3.4-5.0); Sodium 141 mmol/L (137-145)
[2021-01-25] MEDS: FLUTICASONE/SALMETEROL 45-21 MCG INHALER 1 PUFF 2 PUFF INHALATION ×2 (08:37→21:23)
[2021-01-25] MEDS: FUROSEMIDE 40 MG TABLET PO (08:50)
[2021-01-25] MEDS: MULTIVITAMINS /C LUTEIN (CENTRUM SILVER) TABLET *BKC 1 TAB PO (08:50)
[2021-01-25] MEDS: DOCUSATE SODIUM 100 MG CAPSULE PO (08:50)
[2021-01-25] MEDS: CHOLECALCIFEROL 1,000 UNITS TABLET 1000 UNITS PO (08:50)
[2021-01-25] MEDS: GABAPENTIN 300 MG CAPSULE PO ×3 (08:50→16:29)
[2021-01-25] MEDS: ASCORBIC ACID 250 MG TABLET PO (08:51)
[2021-01-25] MEDS: POLYSACCHARIDE IRON COMPLEX 150 MG CAPSULE PO (08:51)
[2021-01-25] MEDS: POTASSIUM CHLORIDE 20 MEQ TABLET.ER PO (08:51)
[2021-01-25] MEDS: predniSONE 20 MG TABLET 60 MG PO (08:51)
[2021-01-25] MEDS: guaiFENesin 12 HR 600 MG TABCR 1200 MG PO ×2 (08:51→21:07)
[2021-01-25] MEDS: MAGNESIUM OXIDE 400 MG TABLET PO (08:52)
[2021-01-25] MEDS: ROFLUMILAST 500 MCG TABLET PO (08:52)
[2021-01-25] MEDS: NEBIVOLOL HCL 5 MG TABLET 10 MG PO (08:52)
[2021-01-25] MEDS: OMEGA 3 POLYUNSAT FATTY ACIDS 1 GM CAP PO (08:52)
[2021-01-25] MEDS: SERTRALINE HCL 50 MG TABLET PO (08:52)
[2021-01-25] MEDS: SALINE 0.65% NAS SOLN 44 ML BTL 1 SPRAY NASAL ×3 (08:52→16:32)
--- NOTE | 2021-01-25 09:25 | PCOTNOTE ---
Patient breakfast arrived while attempting to see patient, will attempt again later.
--- NOTE | 2021-01-25 11:55 | PCPTNOTE ---
Patient declined PT stating that she was ordering lunch and would be discharged to SNF after lunch. PT will continue to follow per plan of care.
--- NOTE | 2021-01-25 14:31 | PM.IMPN ---
Progress Note: A&P Assessment and Plan (1) Acute on chronic respiratory failure with hypoxia and hypercapnia: Code(s): J96.21 - Acute and chronic respiratory failure with hypoxia; J96.22 - Acute and chronic respiratory failure with hypercapnia Status: Acute Assessment and Plan: Interval history : 75-year-old morbidly obese female had been at local rehab for physical therapy and was found to be desaturate and requiring 4 L of oxygen compare to her regular 2 L of oxygen and patient was sent to emergency department for further evaluation, patient states she did not feel as short of breath as she appeared however with exertion patient was requiring 4 L of oxygen, chest x-ray shows pulmonary edema, and no echo is available is patient does not come to hospital regularly, patient being diuresed IV Lasix 40 mg b.i.d., patient also complains dysuria and frequency of urination patient states she has a history of recurrent UTI, Patient is treated with Rocephin for proteus mirabilis, check UA and UC dc soon after 7 days of iv rocephin. Pt is being treated for UTI and chf exacerbation and copd exacerbation Pt had negative covid test on 01/20/2021 (2) Acute exacerbation of congestive heart failure: Code(s): I50.9 - Heart failure, unspecified Status: Resolved Assessment and Plan: Patient being diuresed with iv Lasix transition to oral Lasix. (3) Hypokalemia: Code(s): E87.6 - Hypokalemia Status: Resolved Assessment and Plan: Resolved (4) Atrial fibrillation: Code(s): I48.91 - Unspecified atrial fibrillation Status: Chronic Assessment and Plan: Rate is controlled anticoagulated with Xarelto (5) Chronic anticoagulation: Code(s): Z79.01 - shelter (current) use of anticoagulants Status: Chronic Assessment and Plan: Clinically stable (6) Hypothyroidism: Code(s): E03.9 - Hypothyroidism, unspecified Status: Chronic (7) Obstructive sleep apnea on CPAP: Code(s): G47.33 - Obstructive sleep apnea (adult) (pediatric); Z99.89 - Dependence on other enabling machines and devices Status: Chronic Assessment and Plan: Continue CPAP (8) Hypertension: Code(s): I10 - Essential (primary) hypertension Status: Chronic Assessment and Plan: Continue home regimen (9) Urinary tract infection: Code(s): N39.0 - Urinary tract infection, site not specified Status: Acute Assessment and Plan: Treated with Rocephin, urine culture are seen (10) Chronic obstructive pulmonary disease: Code(s): J44.9 - Chronic obstructive pulmonary disease, unspecified Status: Acute Assessment and Plan: Treated with prednisone and updraft (11) Breast lump: Code(s): N63.0 - Unspecified lump in unspecified breast Status: Acute Assessment and Plan: R breast with lumps pt will benefit from urgent MMG on discharge Subjective Date/time seen: 01/25/21 14:31 Interval history: 75-year-old morbidly obese female had been at local rehab for physical therapy and was found to be desaturate and requiring 4 L of oxygen compare to her regular 2 L of oxygen and patient was sent to emergency department for further evaluation, patient states she did not feel as short of breath as she appeared however with exertion patient was requiring 4 L of oxygen, chest x-ray shows pulmonary edema, and no echo is available is patient does not come to hospital regularly, patient being diuresed IV Lasix 40 mg b.i.d., patient also complains dysuria and frequency of urination patient states she has a history of recurrent UTI, Patient is treated with Rocephin, urine showing proteus, sensitive to iv rocephin. I will rpt UC tomorrow. Pt had negative covid test on 01/20/2021. Pt has lumps in her right breast. pt will benefit from MMG on discharge. Review of Systems Review of Systems: All systems reviewed & are unremarkable exce
[2021-01-25] MEDS: RIVAROXABAN 20 MG TABLET PO (16:29)
[2021-01-25] MEDS: MELATONIN 3 MG TABLET PO (21:07)
[2021-01-26] VITALS (14 sets, daily range): BP systolic 106–109; BP diastolic 43–68; PULSE 73–116; RESP 14–24; TEMP 36.2–36.6; O2SAT 92–96
[2021-01-26] MEDS: ALBUTEROL SULFATE NEB 2.5 MG/0.5 ML INH 5 MG INHALATION ×4 (02:51→19:50)
[2021-01-26] MEDS: IPRATROPIUM BR 0.02% INH SOLN 0.5 MG/2.5 ML VIAL INHALATION ×4 (02:51→19:51)
[2021-01-26] MEDS: LEVOTHYROXINE SODIUM 100 MCG TABLET PO (05:49)
[2021-01-26] MEDS: LEVOTHYROXINE SODIUM 75 MCG TABLET PO (05:49)
[2021-01-26 06:21] LABS: Add Urine Microscopic? YES; Appearance Urine Cloudy (Clear); Bacteria Urine 1+ /hpf; Bilirubin Urine Negative (Negative); Blood Urine 3+ (Negative); Color Urine Yellow (Yellow); Glucose Urine UA Negative (Negative); Ketones Urine Negative (Negative); Leukocyte Esterase Ur 2+ LEU/UL (Negative); Mucus Urine Rare /lpf; Nitrate Urine Negative (Negative); Protein Urine 1+ mg/dL (Negative); RBC Urine >75 /hpf (0-2); Squamous Epithelial Cell Urine Moderate /hpf (Few); Urobilinogen Urine Negative mg/dL (<2.0); WBC Urine >75 /hpf
[2021-01-26 06:54] LABS: Hematocrit 40.5 % (37.0-47.0); Hemoglobin 12.1 g/dL (12.0-15.0); Mean Corpuscular HGB Conc 29.9 g/dl (32-36); Mean Corpuscular Hemoglobin 25.3 pg (26-34); Mean Corpuscular Volume 84.6 fl (80-100); Mean Platelet Volume 9.1 fl (7.4-10.4); Platelet Count Result 406 k/mm3 (150-375); Red Blood Count 4.79 M/mm3 (4.2-5.4); Red Cell Distribution Width 18.2 % (11.5-14.5); White Blood Count 14.1 K/mm3 (4.5-10.0)
[2021-01-26 07:06] LABS: Blood Urea Nitrogen 31 mg/dL (7-17); Calcium 8.7 mg/dL (8.4-10.2); Carbon Dioxide > 40 mmol/L (22-30); Chloride 99 mmol/L (98-107); Estimated CRCL calculation 84 ml/min; Estimated Glomerular Filt Rate > 60; Glucose 88 mg/dL (65-105); Potassium 3.8 mmol/L (3.4-5.0); Sodium 138 mmol/L (137-145)
[2021-01-26] MEDS: FLUTICASONE/SALMETEROL 45-21 MCG INHALER 1 PUFF 2 PUFF INHALATION ×2 (08:35→21:47)
[2021-01-26] MEDS: POLYSACCHARIDE IRON COMPLEX 150 MG CAPSULE PO (09:47)
[2021-01-26] MEDS: POTASSIUM CHLORIDE 20 MEQ TABLET.ER PO (09:47)
[2021-01-26] MEDS: predniSONE 20 MG TABLET 60 MG PO (09:48)
[2021-01-26] MEDS: ASCORBIC ACID 250 MG TABLET PO (09:49)
[2021-01-26] MEDS: CHOLECALCIFEROL 1,000 UNITS TABLET 1000 UNITS PO (09:50)
[2021-01-26] MEDS: DOCUSATE SODIUM 100 MG CAPSULE PO (09:50)
[2021-01-26] MEDS: GABAPENTIN 300 MG CAPSULE PO ×3 (09:52→18:41)
[2021-01-26] MEDS: guaiFENesin 12 HR 600 MG TABCR 1200 MG PO ×2 (09:53→21:26)
[2021-01-26] MEDS: MAGNESIUM OXIDE 400 MG TABLET PO (09:54)
[2021-01-26] MEDS: MULTIVITAMINS /C LUTEIN (CENTRUM SILVER) TABLET *BKC 1 TAB PO (09:54)
[2021-01-26] MEDS: OMEGA 3 POLYUNSAT FATTY ACIDS 1 GM CAP PO (09:55)
[2021-01-26] MEDS: NEBIVOLOL HCL 5 MG TABLET 10 MG PO (09:55)
[2021-01-26] MEDS: polyethylene glycoL 3350 17 GM POWD.PACK PO (09:57)
[2021-01-26] MEDS: PSYLLIUM POWDER PACKET 1 PACKET PO (09:57)
[2021-01-26] MEDS: ROFLUMILAST 500 MCG TABLET PO (09:58)
[2021-01-26] MEDS: SALINE 0.65% NAS SOLN 44 ML BTL 1 SPRAY NASAL ×3 (09:58→18:44)
[2021-01-26] MEDS: SERTRALINE HCL 50 MG TABLET PO (09:59)
[2021-01-26] MEDS: FUROSEMIDE 40 MG TABLET PO (11:40)
--- NOTE | 2021-01-26 14:01 | PM.IMPN ---
Progress Note: A&P Assessment and Plan (1) Acute on chronic respiratory failure with hypoxia and hypercapnia: Code(s): J96.21 - Acute and chronic respiratory failure with hypoxia; J96.22 - Acute and chronic respiratory failure with hypercapnia Status: Acute Assessment and Plan: Interval history : 75-year-old morbidly obese female had been at local rehab for physical therapy and was found to be desaturate and requiring 4 L of oxygen compare to her regular 2 L of oxygen and patient was sent to emergency department for further evaluation, patient states she did not feel as short of breath as she appeared however with exertion patient was requiring 4 L of oxygen, chest x-ray shows pulmonary edema, and no echo is available is patient does not come to hospital regularly, patient being diuresed IV Lasix 40 mg b.i.d., patient also complains dysuria and frequency of urination patient states she has a history of recurrent UTI, Patient is treated with Rocephin for proteus mirabilis, check UA and UC dc soon after 7 days of iv rocephin. Thu/Thursday Pt is being treated for UTI and chf exacerbation and copd exacerbation Pt had negative covid test on 01/20/2021 (2) Acute exacerbation of congestive heart failure: Code(s): I50.9 - Heart failure, unspecified Status: Resolved Assessment and Plan: Patient being diuresed with iv Lasix transition to oral Lasix. (3) Hypokalemia: Code(s): E87.6 - Hypokalemia Status: Resolved Assessment and Plan: Resolved (4) Atrial fibrillation: Code(s): I48.91 - Unspecified atrial fibrillation Status: Chronic Assessment and Plan: Rate is controlled anticoagulated with Xarelto (5) Chronic anticoagulation: Code(s): Z79.01 - long-term (current) use of anticoagulants Status: Chronic Assessment and Plan: Clinically stable (6) Hypothyroidism: Code(s): E03.9 - Hypothyroidism, unspecified Status: Chronic (7) Obstructive sleep apnea on CPAP: Code(s): G47.33 - Obstructive sleep apnea (adult) (pediatric); Z99.89 - Dependence on other enabling machines and devices Status: Chronic Assessment and Plan: Continue CPAP (8) Hypertension: Code(s): I10 - Essential (primary) hypertension Status: Chronic Assessment and Plan: Continue home regimen (9) Urinary tract infection: Code(s): N39.0 - Urinary tract infection, site not specified Status: Acute Assessment and Plan: Treated with Rocephin, urine culture are seen (10) Chronic obstructive pulmonary disease: Code(s): J44.9 - Chronic obstructive pulmonary disease, unspecified Status: Acute Assessment and Plan: Treated with prednisone and updraft, wean off steroids (11) Breast lump: Code(s): N63.0 - Unspecified lump in unspecified breast Status: Acute Assessment and Plan: R breast with lumps pt will benefit from urgent MMG on discharge Subjective Date/time seen: 01/26/21 14:01 Interval history: 75-year-old morbidly obese female had been at local rehab for physical therapy and was found to be desaturate and requiring 4 L of oxygen compare to her regular 2 L of oxygen and patient was sent to emergency department for further evaluation, patient states she did not feel as short of breath as she appeared however with exertion patient was requiring 4 L of oxygen, chest x-ray shows pulmonary edema, and no echo is available is patient does not come to hospital regularly, patient being diuresed IV Lasix 40 mg b.i.d., patient also complains dysuria and frequency of urination patient states she has a history of recurrent UTI, Patient is treated with Rocephin, urine showing proteus, sensitive to iv rocephin. I will rpt UC today. Pt had negative covid test on 01/20/2021. Pt has lumps in her right breast. pt will benefit from MMG on discharge. Review of Systems Review of Systems: All systems rev
[2021-01-26] MEDS: RIVAROXABAN 20 MG TABLET PO (18:44)
[2021-01-26] MEDS: MELATONIN 3 MG TABLET PO (21:26)
[2021-01-27] VITALS (13 sets, daily range): BP systolic 100–139; BP diastolic 54–86; PULSE 83–114; RESP 18–21; TEMP 35.7–36.6; O2SAT 93–100
[2021-01-27] MEDS: oxyCODONE/ACETAMINOPHEN (*CRX) 5-325 MG TABLET 1 TABLET PO (01:58)
[2021-01-27] MEDS: IPRATROPIUM BR 0.02% INH SOLN 0.5 MG/2.5 ML VIAL INHALATION ×4 (03:12→20:19)
[2021-01-27] MEDS: ALBUTEROL SULFATE NEB 2.5 MG/0.5 ML INH 5 MG INHALATION ×4 (03:12→20:20)
--- NOTE | 2021-01-27 04:46 | PC.NURSE ---
Daylight Savings Time For Daylight Savings Time Ending in the Fall - Clocks are moved back. For Daylight Savings Time Beginning in the Spring - Clocks are moved ahead. For [facility], the time of change occurs at 0200 hrs. Time is taken from the cafeteria server. This entry on the patient's chart recognizes the change in time reflected during documentation. Example: 2 entries for vital signs may be charted for 0200 hrs.
[2021-01-27] MEDS: LEVOTHYROXINE SODIUM 100 MCG TABLET PO (06:22)
[2021-01-27] MEDS: LEVOTHYROXINE SODIUM 75 MCG TABLET PO (06:22)
[2021-01-27 06:41] LABS: Blood Urea Nitrogen 30 mg/dL (7-17); Calcium 8.7 mg/dL (8.4-10.2); Carbon Dioxide > 40 mmol/L (22-30); Chloride 98 mmol/L (98-107); Estimated CRCL calculation 75 ml/min; Estimated Glomerular Filt Rate > 60; Glucose 107 mg/dL (65-105); Potassium 4.3 mmol/L (3.4-5.0); Sodium 140 mmol/L (137-145)
[2021-01-27 06:52] LABS: Hematocrit 41.4 % (37.0-47.0); Hemoglobin 12.2 g/dL (12.0-15.0); Mean Corpuscular HGB Conc 29.5 g/dl (32-36); Mean Corpuscular Hemoglobin 25.2 pg (26-34); Mean Corpuscular Volume 85.4 fl (80-100); Mean Platelet Volume 9.4 fl (7.4-10.4); Platelet Count Result 419 k/mm3 (150-375); Red Blood Count 4.85 M/mm3 (4.2-5.4); Red Cell Distribution Width 18.1 % (11.5-14.5); White Blood Count 15.9 K/mm3 (4.5-10.0)
[2021-01-27] MEDS: FLUTICASONE/SALMETEROL 45-21 MCG INHALER 1 PUFF 2 PUFF INHALATION ×2 (08:01→20:28)
[2021-01-27] MEDS: POLYSACCHARIDE IRON COMPLEX 150 MG CAPSULE PO (09:35)
[2021-01-27] MEDS: POTASSIUM CHLORIDE 20 MEQ TABLET.ER PO (09:36)
[2021-01-27] MEDS: predniSONE 20 MG TABLET 40 MG PO (09:36)
[2021-01-27] MEDS: CHOLECALCIFEROL 1,000 UNITS TABLET 1000 UNITS PO (09:37)
[2021-01-27] MEDS: DOCUSATE SODIUM 100 MG CAPSULE PO (09:38)
[2021-01-27] MEDS: ASCORBIC ACID 250 MG TABLET PO (09:38)
[2021-01-27] MEDS: guaiFENesin 12 HR 600 MG TABCR 1200 MG PO ×2 (09:40→20:50)
[2021-01-27] MEDS: NEBIVOLOL HCL 5 MG TABLET 10 MG PO (09:40)
[2021-01-27] MEDS: FUROSEMIDE 40 MG TABLET PO (09:41)
[2021-01-27] MEDS: MAGNESIUM OXIDE 400 MG TABLET PO (09:42)
[2021-01-27] MEDS: MULTIVITAMINS /C LUTEIN (CENTRUM SILVER) TABLET *BKC 1 TAB PO (09:42)
[2021-01-27] MEDS: polyethylene glycoL 3350 17 GM POWD.PACK PO (09:43)
[2021-01-27] MEDS: OMEGA 3 POLYUNSAT FATTY ACIDS 1 GM CAP PO (09:43)
[2021-01-27] MEDS: PSYLLIUM POWDER PACKET 1 PACKET PO (09:43)
[2021-01-27] MEDS: GABAPENTIN 300 MG CAPSULE PO ×3 (09:43→17:00)
[2021-01-27] MEDS: ROFLUMILAST 500 MCG TABLET PO (09:44)
[2021-01-27] MEDS: SALINE 0.65% NAS SOLN 44 ML BTL 1 SPRAY NASAL ×3 (09:48→17:00)
[2021-01-27] MEDS: SERTRALINE HCL 50 MG TABLET PO (09:49)
--- NOTE | 2021-01-27 10:57 | PM.IMPN ---
Progress Note: A&P Assessment and Plan (1) Acute on chronic respiratory failure with hypoxia and hypercapnia: Code(s): J96.21 - Acute and chronic respiratory failure with hypoxia; J96.22 - Acute and chronic respiratory failure with hypercapnia Status: Acute Assessment and Plan: Interval history : 75-year-old morbidly obese female had been at local rehab for physical therapy and was found to be desaturate and requiring 4 L of oxygen compare to her regular 2 L of oxygen and patient was sent to emergency department for further evaluation, patient states she did not feel as short of breath as she appeared however with exertion patient was requiring 4 L of oxygen, chest x-ray shows pulmonary edema, and no echo is available is patient does not come to hospital regularly, patient being diuresed IV Lasix 40 mg b.i.d., patient also complains dysuria and frequency of urination patient states she has a history of recurrent UTI, Patient is treated with Rocephin for proteus mirabilis, check UA and UC dc soon after 7 days of iv rocephin. Thu/Thursday Pt is being treated for UTI and chf exacerbation and copd exacerbation Pt had negative covid test on 01/20/2021 (2) Acute exacerbation of congestive heart failure: Code(s): I50.9 - Heart failure, unspecified Status: Resolved Assessment and Plan: Patient being diuresed with iv Lasix transition to oral Lasix. (3) Hypokalemia: Code(s): E87.6 - Hypokalemia Status: Resolved Assessment and Plan: Resolved (4) Atrial fibrillation: Code(s): I48.91 - Unspecified atrial fibrillation Status: Chronic Assessment and Plan: Rate is controlled anticoagulated with Xarelto (5) Chronic anticoagulation: Code(s): Z79.01 - [facility] (current) use of anticoagulants Status: Chronic Assessment and Plan: Clinically stable (6) Hypothyroidism: Code(s): E03.9 - Hypothyroidism, unspecified Status: Chronic (7) Obstructive sleep apnea on CPAP: Code(s): G47.33 - Obstructive sleep apnea (adult) (pediatric); Z99.89 - Dependence on other enabling machines and devices Status: Chronic Assessment and Plan: Continue CPAP (8) Hypertension: Code(s): I10 - Essential (primary) hypertension Status: Chronic Assessment and Plan: Continue home regimen (9) Urinary tract infection: Code(s): N39.0 - Urinary tract infection, site not specified Status: Acute Assessment and Plan: Treated with Rocephin, urine culture are seen (10) Chronic obstructive pulmonary disease: Code(s): J44.9 - Chronic obstructive pulmonary disease, unspecified Status: Acute Assessment and Plan: Treated with prednisone and updraft, wean off steroids (11) Breast lump: Code(s): N63.0 - Unspecified lump in unspecified breast Status: Acute Assessment and Plan: R breast with lumps pt will benefit from urgent MMG on discharge Subjective Date/time seen: 01/27/21 10:57 Objective Data Vital Signs Vital Signs: Vital Signs - 24 hr 01/26/21 14:00 01/26/21 14:09 01/26/21 14:20 Temperature 97.3 F L Pulse Rate 116 H 93 95 Respiratory Rate 24 H 20 20 Blood Pressure 106/49 L Pulse Oximetry 95 01/26/21 19:52 01/26/21 19:53 01/26/21 20:03 Temperature Pulse Rate 100 102 H Respiratory Rate 20 20 Blood Pressure Pulse Oximetry 96 01/26/21 21:36 01/27/21 03:15 01/27/21 03:25 Temperature 97.8 F Pulse Rate 102 H 85 87 Respiratory Rate 20 18 18 Blood Pressure 109/43 L Pulse Oximetry 93 01/27/21 03:34 01/27/21 05:35 01/27/21 07:57 Temperature 96.2 F L Pulse Rate 83 97 Respiratory Rate 21 H 20 Blood Pressure 139/54 L Pulse Oximetry 97 97 95 01/27/21 08:04 Temperature Pulse Rate 88 Respiratory Rate 18 Blood Pressure Pulse Oximetry Intake/Output Intake/Output: Intake & Output 01/24/21 01/25/21 01/26/21
--- NOTE | 2021-01-27 11:12 | PM.DS ---
DS: Discharge Diagnosis Discharge Diagnosis (1) Acute on chronic respiratory failure with hypoxia and hypercapnia: Code(s): J96.21 - Acute and chronic respiratory failure with hypoxia; J96.22 - Acute and chronic respiratory failure with hypercapnia Status: Acute Assessment and Plan: Interval history : 75-year-old morbidly obese female had been at local rehab for physical therapy and was found to be desaturate and requiring 4 L of oxygen compare to her regular 2 L of oxygen and patient was sent to emergency department for further evaluation, patient states she did not feel as short of breath as she appeared however with exertion patient was requiring 4 L of oxygen, chest x-ray shows pulmonary edema, and no echo is available is patient does not come to hospital regularly, patient being diuresed IV Lasix 40 mg b.i.d., patient also complains dysuria and frequency of urination patient states she has a history of recurrent UTI, Patient is treated with Rocephin for proteus mirabilis, check UA and UC dc soon after 7 days of iv rocephin. Thu/Thursday Pt is being treated for UTI and chf exacerbation and copd exacerbation Pt had negative covid test on 01/20/2021 (2) Acute exacerbation of congestive heart failure: Code(s): I50.9 - Heart failure, unspecified Status: Resolved Assessment and Plan: Patient being diuresed with iv Lasix transition to oral Lasix. (3) Hypokalemia: Code(s): E87.6 - Hypokalemia Status: Resolved Assessment and Plan: Resolved (4) Atrial fibrillation: Code(s): I48.91 - Unspecified atrial fibrillation Status: Chronic Assessment and Plan: Rate is controlled anticoagulated with Xarelto (5) Chronic anticoagulation: Code(s): Z79.01 - shelter (current) use of anticoagulants Status: Chronic Assessment and Plan: Clinically stable (6) Hypothyroidism: Code(s): E03.9 - Hypothyroidism, unspecified Status: Chronic (7) Obstructive sleep apnea on CPAP: Code(s): G47.33 - Obstructive sleep apnea (adult) (pediatric); Z99.89 - Dependence on other enabling machines and devices Status: Chronic Assessment and Plan: Continue CPAP (8) Hypertension: Code(s): I10 - Essential (primary) hypertension Status: Chronic Assessment and Plan: Continue home regimen (9) Urinary tract infection: Code(s): N39.0 - Urinary tract infection, site not specified Status: Acute Assessment and Plan: Treated with Rocephin, urine culture are seen (10) Chronic obstructive pulmonary disease: Code(s): J44.9 - Chronic obstructive pulmonary disease, unspecified Status: Acute Assessment and Plan: Treated with prednisone and updraft, wean off steroids (11) Breast lump: Code(s): N63.0 - Unspecified lump in unspecified breast Status: Acute Assessment and Plan: R breast with lumps pt will benefit from urgent MMG on discharge DS: Summary Time Spent with Patient Time attestation: Total time spent providing and/or coordinating discharge services: DS: Data Data Completed and Pending Labs on day of discharge: Labs from last 24 hours 01/27/21 01/27/21 06:09 06:09 WBC 15.9 H RBC 4.85 Hgb 12.2 Hct 41.4 MCV 85.4 MCH 25.2 L MCHC 29.5 L RDW 18.1 H Plt Count 419 H MPV 9.4 Sodium 140 Potassium 4.3 Chloride 98 Carbon Dioxide > 40 H Anion Gap BUN 30 H Creatinine 0.80 Estim Creat Clear Calc 75 Estimated GFR > 60 Glucose 107 H Calcium 8.7 Discharge Plan Discharge Attending physician on discharge: Lyudmila Lora Consulting providers: Ishaan Mcclure Discharging Clinician: Bright Ingram Anticipated Discharge Date/Time: 01/28/21 16:00 Patient Disposition: NH Halfway/Asst Living Activity: as tolerated Diet: heart healthy Discharge Instructions: Pt will need to have a urgent
--- NOTE | 2021-01-27 11:19 | PM.IMPN ---
Progress Note: A&P Assessment and Plan (1) Acute on chronic respiratory failure with hypoxia and hypercapnia: Code(s): J96.21 - Acute and chronic respiratory failure with hypoxia; J96.22 - Acute and chronic respiratory failure with hypercapnia Status: Acute Assessment and Plan: Interval history : 75-year-old morbidly obese female had been at local rehab for physical therapy and was found to be desaturate and requiring 4 L of oxygen compare to her regular 2 L of oxygen and patient was sent to emergency department for further evaluation, patient states she did not feel as short of breath as she appeared however with exertion patient was requiring 4 L of oxygen, chest x-ray shows pulmonary edema, and no echo is available is patient does not come to hospital regularly, patient being diuresed IV Lasix 40 mg b.i.d., patient also complains dysuria and frequency of urination patient states she has a history of recurrent UTI, Patient is treated with Rocephin for proteus mirabilis, check UA and UC dc soon after 7 days of iv rocephin. Thursday Pt is being treated for UTI and chf exacerbation and copd exacerbation Pt had negative covid test on 01/20/2021 (2) Acute exacerbation of congestive heart failure: Code(s): I50.9 - Heart failure, unspecified Status: Resolved Assessment and Plan: Patient being diuresed with iv Lasix transition to oral Lasix. (3) Hypokalemia: Code(s): E87.6 - Hypokalemia Status: Resolved Assessment and Plan: Resolved (4) Atrial fibrillation: Code(s): I48.91 - Unspecified atrial fibrillation Status: Chronic Assessment and Plan: Rate is controlled anticoagulated with Xarelto (5) Chronic anticoagulation: Code(s): Z79.01 - [facility] (current) use of anticoagulants Status: Chronic Assessment and Plan: Clinically stable (6) Hypothyroidism: Code(s): E03.9 - Hypothyroidism, unspecified Status: Chronic (7) Obstructive sleep apnea on CPAP: Code(s): G47.33 - Obstructive sleep apnea (adult) (pediatric); Z99.89 - Dependence on other enabling machines and devices Status: Chronic Assessment and Plan: Continue CPAP (8) Hypertension: Code(s): I10 - Essential (primary) hypertension Status: Chronic Assessment and Plan: Continue home regimen (9) Urinary tract infection: Code(s): N39.0 - Urinary tract infection, site not specified Status: Acute Assessment and Plan: Treated with Rocephin, urine culture are seen (10) Chronic obstructive pulmonary disease: Code(s): J44.9 - Chronic obstructive pulmonary disease, unspecified Status: Acute Assessment and Plan: Treated with prednisone and updraft, wean off steroids (11) Breast lump: Code(s): N63.0 - Unspecified lump in unspecified breast Status: Acute Assessment and Plan: R breast with lumps pt will benefit from urgent MMG on discharge Subjective Date/time seen: 01/27/21 11:19 Interval history: 01/27: No new c/o. Wants to keep Leyva because she has incontinence issues and does not want to get up to the bedside commode to urinate. Denied pain or unusual sob. Eating very well. Review of Systems Review of Systems: All systems reviewed & are unremarkable except as noted in HPI and below Exam Narrative: Exam Narrative: HEENT: EOMI, PERRL, sclerae nonicteric, pharyngeal mucosa pink and intact NECK: No JVD CHEST: Clear to auscultation. Normal effort. HEART: NL S1/S2, regular, no murmur ABDOMEN: BS+, soft, nontender, no mass, no bruits EXTREMITIES: No cyanosis, edema, or clubbing NEUROLOGIC: CN intact and symmetric to inspection. MUSCULOSKELETAL: Tone and strength symmetric. PSYCH: Alert. Oriented to person, place, and time. Objective Data Vital Signs Vital Signs: Vital Signs - 24 hr 01/26/21 14:00 01/26/21 14:09 01/26/21 14:20 Temperature 97.3 F L Pulse Rate 116 H 9
[2021-01-27] MEDS: RIVAROXABAN 20 MG TABLET PO (17:00)
[2021-01-27] MEDS: MELATONIN 3 MG TABLET PO (20:51)
[2021-01-28] VITALS (17 sets, daily range): BP systolic 98–135; BP diastolic 52–73; PULSE 68–124; RESP 16–20; TEMP 36–36.7; O2SAT 90–96
[2021-01-28] MEDS: IPRATROPIUM BR 0.02% INH SOLN 0.5 MG/2.5 ML VIAL INHALATION ×4 (01:29→21:05)
[2021-01-28] MEDS: ALBUTEROL SULFATE NEB 2.5 MG/0.5 ML INH 5 MG INHALATION ×4 (01:29→21:04)
[2021-01-28 05:57] LABS: Hematocrit 40.8 % (37.0-47.0); Hemoglobin 12.2 g/dL (12.0-15.0); Mean Corpuscular HGB Conc 29.9 g/dl (32-36); Mean Corpuscular Hemoglobin 25.6 pg (26-34); Mean Corpuscular Volume 85.5 fl (80-100); Mean Platelet Volume 9.3 fl (7.4-10.4); Platelet Count Result 388 k/mm3 (150-375); Red Blood Count 4.77 M/mm3 (4.2-5.4); Red Cell Distribution Width 18.4 % (11.5-14.5); White Blood Count 15.9 K/mm3 (4.5-10.0)
[2021-01-28 06:08] LABS: Anion Gap 2 mmol/L (8-16); Blood Urea Nitrogen 31 mg/dL (7-17); Calcium 8.6 mg/dL (8.4-10.2); Carbon Dioxide 39 mmol/L (22-30); Chloride 99 mmol/L (98-107); Estimated CRCL calculation 84 ml/min; Estimated Glomerular Filt Rate > 60; Glucose 80 mg/dL (65-105); Potassium 4.2 mmol/L (3.4-5.0); Sodium 140 mmol/L (137-145)
[2021-01-28] MEDS: LEVOTHYROXINE SODIUM 100 MCG TABLET PO (06:37)
[2021-01-28] MEDS: LEVOTHYROXINE SODIUM 75 MCG TABLET PO (06:38)
[2021-01-28] MEDS: FLUTICASONE/SALMETEROL 45-21 MCG INHALER 1 PUFF 2 PUFF INHALATION ×2 (08:26→21:05)
[2021-01-28] MEDS: MULTIVITAMINS /C LUTEIN (CENTRUM SILVER) TABLET *BKC 1 TAB PO (09:40)
[2021-01-28] MEDS: predniSONE 20 MG TABLET 40 MG PO (09:41)
[2021-01-28] MEDS: ROFLUMILAST 500 MCG TABLET PO (09:41)
[2021-01-28] MEDS: OMEGA 3 POLYUNSAT FATTY ACIDS 1 GM CAP PO (09:41)
[2021-01-28] MEDS: NEBIVOLOL HCL 5 MG TABLET 10 MG PO (09:42)
[2021-01-28] MEDS: POTASSIUM CHLORIDE 20 MEQ TABLET.ER PO (09:42)
[2021-01-28] MEDS: MAGNESIUM OXIDE 400 MG TABLET PO (09:42)
[2021-01-28] MEDS: FUROSEMIDE 40 MG TABLET PO (09:42)
[2021-01-28] MEDS: ASCORBIC ACID 250 MG TABLET PO (09:43)
[2021-01-28] MEDS: guaiFENesin 12 HR 600 MG TABCR 1200 MG PO ×2 (09:43→20:36)
[2021-01-28] MEDS: DOCUSATE SODIUM 100 MG CAPSULE PO (09:43)
[2021-01-28] MEDS: SERTRALINE HCL 50 MG TABLET PO (09:43)
[2021-01-28] MEDS: CHOLECALCIFEROL 1,000 UNITS TABLET 1000 UNITS PO (09:43)
[2021-01-28] MEDS: POLYSACCHARIDE IRON COMPLEX 150 MG CAPSULE PO (09:43)
[2021-01-28] MEDS: GABAPENTIN 300 MG CAPSULE PO ×3 (09:43→16:32)
[2021-01-28] MEDS: SALINE 0.65% NAS SOLN 44 ML BTL 1 SPRAY NASAL ×3 (09:51→16:32)
[2021-01-28 12:59] LABS: SARS-CoV-2 RNA PCR Negative
--- NOTE | 2021-01-28 14:06 | PM.IMPN ---
Progress Note: A&P Assessment and Plan (1) Acute on chronic respiratory failure with hypoxia and hypercapnia: Code(s): J96.21 - Acute and chronic respiratory failure with hypoxia; J96.22 - Acute and chronic respiratory failure with hypercapnia Status: Acute Assessment and Plan: Interval history : 75-year-old morbidly obese female had been at local rehab for physical therapy and was found to be desaturate and requiring 4 L of oxygen compare to her regular 2 L of oxygen and patient was sent to emergency department for further evaluation, patient states she did not feel as short of breath as she appeared however with exertion patient was requiring 4 L of oxygen, chest x-ray shows pulmonary edema, and no echo is available is patient does not come to hospital regularly, patient being diuresed IV Lasix 40 mg b.i.d., patient also complains dysuria and frequency of urination patient states she has a history of recurrent UTI, Patient is treated with Rocephin for proteus mirabilis, rpt UC shows VRE, I will consult Dr Cheung, urinary catheter was removed yesterday. Pt is being treated for UTI and chf exacerbation and copd exacerbation Pt had negative covid test on 01/20/2021 (2) Acute exacerbation of congestive heart failure: Code(s): I50.9 - Heart failure, unspecified Status: Resolved Assessment and Plan: Patient being diuresed with iv Lasix transition to oral Lasix. (3) Hypokalemia: Code(s): E87.6 - Hypokalemia Status: Resolved Assessment and Plan: Resolved (4) Atrial fibrillation: Code(s): I48.91 - Unspecified atrial fibrillation Status: Chronic Assessment and Plan: Rate is controlled anticoagulated with Xarelto (5) Chronic anticoagulation: Code(s): Z79.01 - [facility] (current) use of anticoagulants Status: Chronic Assessment and Plan: Clinically stable (6) Hypothyroidism: Code(s): E03.9 - Hypothyroidism, unspecified Status: Chronic (7) Obstructive sleep apnea on CPAP: Code(s): G47.33 - Obstructive sleep apnea (adult) (pediatric); Z99.89 - Dependence on other enabling machines and devices Status: Chronic Assessment and Plan: Continue CPAP (8) Hypertension: Code(s): I10 - Essential (primary) hypertension Status: Chronic Assessment and Plan: Continue home regimen (9) Urinary tract infection: Code(s): N39.0 - Urinary tract infection, site not specified Status: Acute Assessment and Plan: Treated with Rocephin (10) Chronic obstructive pulmonary disease: Code(s): J44.9 - Chronic obstructive pulmonary disease, unspecified Status: Acute Assessment and Plan: Treated with prednisone and updraft, wean off steroids (11) Breast lump: Code(s): N63.0 - Unspecified lump in unspecified breast Status: Acute Assessment and Plan: R breast with lumps pt will benefit from urgent MMG on discharge Subjective Date/time seen: 01/28/21 14:06 Interval history: 75-year-old morbidly obese female had been at local rehab for physical therapy and was found to be desaturate and requiring 4 L of oxygen compare to her regular 2 L of oxygen and patient was sent to emergency department for further evaluation, patient states she did not feel as short of breath as she appeared however with exertion patient was requiring 4 L of oxygen, chest x-ray shows pulmonary edema, and no echo is available is patient does not come to hospital regularly, patient being diuresed IV Lasix 40 mg b.i.d., patient also complains dysuria and frequency of urination patient states she has a history of recurrent UTI, Patient is treated with Rocephin, urine showing proteus, sensitive to iv rocephin. Pt found to have VRE in the rpt UC, i will consult ID DR CHEUNG Please note-Pt has lumps in her right breast. pt will benefit from MMG on discharge. Review of Systems Review of Systems: Ha
--- NOTE | 2021-01-28 15:07 | PCDIET ---
Pt current nutrition is Heart Healthy Diet+Ensure compact BID Nutrition recommendation: agree Last recorded weight is 138 kg, recommend new wt Bowel Motility: 01/23 Labs Reviewed:WBC 15.9, BUN 31 Meds Noted:Colace, Mg Oxide, Fish oil, Vitamin C, Zofran Additional Notes: Pt on appropriate diet and eating well, 100% of all meals. No needs at this time. I will d/c Ensure compact 2/2 adequate intake. We will continue to follow for adequate intake every seven days.
[2021-01-28] MEDS: RIVAROXABAN 20 MG TABLET PO (16:31)
[2021-01-28] MEDS: MELATONIN 3 MG TABLET PO (20:37)
[2021-01-29] VITALS (15 sets, daily range): BP systolic 109–116; BP diastolic 49–76; PULSE 81–112; RESP 18–24; TEMP 36.1–36.7; O2SAT 91–98
[2021-01-29] MEDS: IPRATROPIUM BR 0.02% INH SOLN 0.5 MG/2.5 ML VIAL INHALATION ×4 (01:49→20:29)
[2021-01-29] MEDS: ALBUTEROL SULFATE NEB 2.5 MG/0.5 ML INH 5 MG INHALATION ×4 (01:49→20:29)
[2021-01-29] MEDS: LEVOTHYROXINE SODIUM 100 MCG TABLET PO (06:08)
[2021-01-29] MEDS: LEVOTHYROXINE SODIUM 75 MCG TABLET PO (06:08)
[2021-01-29 06:24] LABS: Hematocrit 40.6 % (37.0-47.0); Hemoglobin 12.2 g/dL (12.0-15.0); Mean Corpuscular Hemoglobin 25.6 pg (26-34); Mean Corpuscular Volume 85.3 fl (80-100); Mean Platelet Volume 9.1 fl (7.4-10.4); Platelet Count Result 376 k/mm3 (150-375); Red Blood Count 4.76 M/mm3 (4.2-5.4); Red Cell Distribution Width 18.6 % (11.5-14.5); White Blood Count 15.1 K/mm3 (4.5-10.0)
[2021-01-29 06:33] LABS: Blood Urea Nitrogen 31 mg/dL (7-17); Calcium 8.5 mg/dL (8.4-10.2); Carbon Dioxide > 40 mmol/L (22-30); Chloride 99 mmol/L (98-107); Estimated CRCL calculation 97 ml/min; Estimated Glomerular Filt Rate > 60; Glucose 100 mg/dL (65-105); Potassium 3.9 mmol/L (3.4-5.0); Sodium 140 mmol/L (137-145)
[2021-01-29] MEDS: FLUTICASONE/SALMETEROL 45-21 MCG INHALER 1 PUFF 2 PUFF INHALATION ×2 (07:57→20:30)
[2021-01-29] MEDS: ASCORBIC ACID 250 MG TABLET PO (09:30)
[2021-01-29] MEDS: FUROSEMIDE 40 MG TABLET PO (09:30)
[2021-01-29] MEDS: DOCUSATE SODIUM 100 MG CAPSULE PO (09:30)
[2021-01-29] MEDS: NEBIVOLOL HCL 5 MG TABLET 10 MG PO (09:30)
[2021-01-29] MEDS: OMEGA 3 POLYUNSAT FATTY ACIDS 1 GM CAP PO (09:30)
[2021-01-29] MEDS: POLYSACCHARIDE IRON COMPLEX 150 MG CAPSULE PO (09:31)
[2021-01-29] MEDS: predniSONE 20 MG TABLET PO (09:31)
[2021-01-29] MEDS: POTASSIUM CHLORIDE 20 MEQ TABLET.ER PO (09:31)
[2021-01-29] MEDS: guaiFENesin 12 HR 600 MG TABCR 1200 MG PO ×2 (09:31→21:31)
[2021-01-29] MEDS: CHOLECALCIFEROL 1,000 UNITS TABLET 1000 UNITS PO (09:31)
[2021-01-29] MEDS: GABAPENTIN 300 MG CAPSULE PO ×3 (09:31→16:07)
[2021-01-29] MEDS: SERTRALINE HCL 50 MG TABLET PO (09:32)
[2021-01-29] MEDS: MULTIVITAMINS /C LUTEIN (CENTRUM SILVER) TABLET *BKC 1 TAB PO (09:32)
[2021-01-29] MEDS: ROFLUMILAST 500 MCG TABLET PO (09:32)
[2021-01-29] MEDS: MAGNESIUM OXIDE 400 MG TABLET PO (09:32)
[2021-01-29] MEDS: SALINE 0.65% NAS SOLN 44 ML BTL 1 SPRAY NASAL ×3 (09:32→16:12)
--- NOTE | 2021-01-29 13:49 | WPDINFPN2 ---
Progress Note: A&P Assessment and Plan (1) Asymptomatic bacteriuria: Code(s): R82.71 - Bacteriuria Status: Acute Assessment and Plan: ASB, leukocytosis due to steroid Rx REC No antimicrobials Subjective Date/time seen: 01/29/21 13:49 Objective Data Vital Signs Vital Signs: Vital Signs - 24 hr 01/28/21 14:00 01/28/21 15:36 01/28/21 15:43 Temperature 36.7 C Pulse Rate 98 105 H 112 H Respiratory Rate 20 20 18 Blood Pressure 135/71 Pulse Oximetry 90 01/28/21 20:15 01/28/21 21:05 01/28/21 21:06 Temperature Pulse Rate 124 H 102 H Respiratory Rate 20 20 Blood Pressure Pulse Oximetry 93 94 01/28/21 21:15 01/28/21 21:53 01/28/21 22:05 Temperature 36.0 C L Pulse Rate 103 H 124 H 68 Respiratory Rate 20 20 Blood Pressure 98/52 L Pulse Oximetry 93 01/29/21 01:50 01/29/21 02:02 01/29/21 02:16 Temperature Pulse Rate 112 H 111 H 81 Respiratory Rate 20 20 24 H Blood Pressure Pulse Oximetry 96 01/29/21 05:50 01/29/21 07:57 01/29/21 08:00 Temperature 36.1 C L Pulse Rate 97 96 Respiratory Rate 20 18 Blood Pressure 116/76 Pulse Oximetry 91 96 96 01/29/21 09:30 Temperature Pulse Rate 96 Respiratory Rate Blood Pressure Pulse Oximetry Intake/Output Intake/Output: Intake & Output 01/26/21 01/27/21 01/28/21 01/29/21 22:59 23:59 23:59 23:59 Intake Total 890 1240 Output Total 750 800 Balance 140 440 Meds/Results Medications: Active Medications Generic Name Dose Route Start Last Admin Trade Name Freq PRN Reason Stop Dose Admin Acetaminophen 650 mg 01/20/21 16:08 01/22/21 14:30 Acetaminophen 325 Mg Tablet PO 650 mg Q4H PRN Administration Mild Pain (1-3) or Fever Albuterol 5 mg 01/20/21 20:00 01/29/21 07:56 Albuterol Sulfate Neb 2.5 Mg/0.5 Ml Inh INHALATION 5 mg Q6HRT RASHID Administration Ascorbic Acid 250 mg 01/21/21 09:00 01/29/21 09:30 Ascorbic Acid 250 Mg Tablet PO 250 mg DAILY RASHID Administration Docusate Sodium 100 mg 01/21/21 09:00 01/29/21 09:30 Docusate Sodium 100 Mg Capsule PO 100 mg DAILY RASHID Administration Fish Oil 1 gm 01/21/21 09:00 01/29/21 09:30 [place] 3 Polyunsat Fatty Acids 1 Gm Cap PO 1 gm DAILY RASHID Administration Furosemide 40 mg 01/25/21 09:00 01/29/21 09:30 Furosemide 40 Mg Tablet PO 40 mg DAILY RASHID Administration Gabapentin 300 mg 01/20/21 23:00 01/29/21 12:40 Gabapentin 300 Mg Capsule PO 300 mg TID RASHID Administration Guaifenesin 1,200 mg 01/20/21 23:00 01/29/21 09:31 Guaifenesin 12 Hr 600 Mg Tabcr PO 1,200 mg Q12HR RASHID Administration Hydrocortisone 1 applic 01/20/21 22:45 01/21/21 20:37 Hydrocortisone (Proctozone-Hc) 2.5% Cream 30 Gm Tube TOPICAL 1 applic BID PRN Administration Itching Ipratropium [place] 0.5 mg 01/20/21 20:00 01/29/21 07:56 Ipratropium Br 0.02% Inh Soln 0.5 Mg/2.5 Ml Vial INHALATION 0.5 mg Q6HRT RASHID Administration Levothyroxine Sodium 75 mcg 01/21/21 06:30 01/29/21 06:08 Levothyroxine Sodium 75 Mcg Tablet PO 75 mcg DAILY@0630 RASHID Administration Levothyroxine Sodium 100 mcg 01/21/21 06:30 01/29/21 06:08 Levothyroxine Sodium 100 Mcg Tablet PO 100 mcg DAILY@0630 RASHID Administration Magnesium Oxide 400 mg 01/21/21 09:00 01/29/21 09:32 Magnesium Oxide 400 Mg Tablet PO 400 mg QAM RASHID Administration Melatonin 3 mg 01/21/21 21:00 01/28/21 20:37 Melatonin 3 Mg Tablet PO 3 mg HS RASHID Administration Multivitamins/Minerals 1 tab 01/21/21 09:00 01/29/21 09:32 Multivitamins /C Lutein (Centrum Silver) Tablet *Bkc PO 1 tab DAILY RASHID Administration Nebivolol 10 mg 01/21/21 09:00 01/29/21 09:30 Nebivolol Hcl 5 Mg Tablet PO 10 mg DAILY RASHID Administration Ondansetron HCl 4 mg 01/20/21 16:08 Ondansetron Inj 4 Mg/2 Ml Vial IV PUSH Q4H PRN Nausea Oxycodone/Acetaminophen 1 tablet 01/21/21 07:4
[2021-01-29] MEDS: RIVAROXABAN 20 MG TABLET PO (16:07)
--- NOTE | 2021-01-29 18:06 | CONS_ITS ---
DATE OF CONSULTATION: 01/29/2021 REASON FOR CONSULTATION: Positive urine culture. HISTORY OF PRESENT ILLNESS: A 75-year-old female whose history is somewhat limited by her memory. She has never had previous bladder nor kidney surgery, has no indwelling catheters, except as noted below. She has occasional urinary incontinence of the overflow type. She has had no previous pelvic surgery. She was admitted to the hospital on January 20 with shortness of breath and has been treated for heart failure exacerbation. She is on steroids since admission. Catheter was placed upon admission and discontinued 2 days ago. Urine culture was obtained and consultation now requested. Steroids are on taper and she is on no antimicrobials. She denies fever, chills, sweats, bladder pain, or dysuria since the catheter was removed. No flank pain. ALLERGIES: AMOXICILLIN, UNKNOWN REACTION. OTHERS NOT PERTINENT. PRESENT MEDICATIONS: Prednisone 20 mg daily. HABITS: No tobacco. No alcohol. PAST MEDICAL HISTORY: Multiple as outlined on her record and reviewed today. FAMILY HISTORY: Not pertinent to her present illness. SOCIAL HISTORY: No family at the bedside. She is . residential resident most recently. REVIEW OF SYSTEMS: , GI, respiratory, constitutional, skin negative other than a skin lesion over the left lower extremity, which apparently had a malignant change on biopsy, though that is unconfirmed. EXAM: GENERAL: Elderly female, morbidly obese. No acute distress, on supplemental O2. VITAL SIGNS: Afebrile since arrival, 97, 20, 116/76. SKIN: No rashes. EENT: Conjunctivae are normal. LUNGS: Clear to auscultation. Good air entry. CARDIAC: Regular rate and rhythm. No murmurs or gallops. ABDOMEN: Morbidly obese. No tenderness, mass, distention, and she has normal bowel sounds. EXTREMITIES: Trace ankle edema. LABORATORY DATA: White count was normal on admission, has been high since then, 15.1 today. Hemoglobin 12.2, platelets of 376. Her BUN 31, creatinine 0.6, similar to previous values. Blood sugars normal. Urinalysis results reviewed. Urine from January 20, Proteus and from January 26, VRE. RADIOLOGY: Chest x-ray performed January 24, improved pulmonary edema. ASSESSMENT: 1. Asymptomatic bacteriuria. 2. Congestive heart failure. 3. Chronic urinary incontinence. RECOMMENDATIONS: 1. Agree no antibiotics. 2. Okay with me for discharge planning. Please call if further questions arise. GINO VIZCARRA M.D. ICE CREAM FREEZER ASSISTANT ICE CREAM FREEZER ASSISTANT D William MT: Diana
--- NOTE | 2021-01-29 18:11 | PM.IMPN ---
Progress Note: A&P Assessment and Plan (1) Acute on chronic respiratory failure with hypoxia and hypercapnia: Code(s): J96.21 - Acute and chronic respiratory failure with hypoxia; J96.22 - Acute and chronic respiratory failure with hypercapnia Status: Acute Assessment and Plan: Prior to admission, patient was found to be hypoxic requiring 4 L of oxygen compare to her regular 2 L of oxygen. ABG 7.4/66/71 on 4L. She has been compliant with the autoPAP. She is clos to her baseline O2 requirement. [place] worsening hypoxia from her CHF and COPD exacerbation. Contineu to wean O2 as toelrated (2) Acute exacerbation of congestive heart failure: Qualifiers: Heart failure type: diastolic Qualified Code(s): I50.33 - Acute on chronic diastolic (congestive) heart failure Code(s): I50.9 - Heart failure, unspecified Status: Resolved Assessment and Plan: Chest x-ray was consistent with CHF exacerbation. She has known diastolic CHF. BNP was 1250. Troponin was negative. She was started on IV Lasix with improvement. She has been transitioned oral Lasix. Located discharge when patient has been accepted back to her facility. (3) Chronic obstructive pulmonary disease: Code(s): J44.9 - Chronic obstructive pulmonary disease, unspecified Status: Acute Assessment and Plan: Patient was initially on prednisone 60 mg for 6 days that was decreased to 40 mg for 2 days. Prednisone 20 mg started today. Continue Advair and Daliresp. Continue Mucinex. Stop prednisone after tomorrow. (4) Urinary tract infection: Code(s): N39.0 - Urinary tract infection, site not specified Status: Acute Assessment and Plan: Urine culture on admission growing Proteus mirabilis sensitive to Rocephin. She completed a course of Rocephin. Repeat urine culture growing VRE but felt to be a contaminant. All antibiotics have been stopped. Appreciate ID input. (5) Atrial fibrillation: Code(s): I48.91 - Unspecified atrial fibrillation Status: Chronic Assessment and Plan: Patient with chronic atrial fibrillation. Heart rate well controlled. Continue Bystolic. Continue Xarelto. (6) Obstructive sleep apnea on CPAP: Code(s): G47.33 - Obstructive sleep apnea (adult) (pediatric); Z99.89 - Dependence on other enabling machines and devices Status: Chronic Assessment and Plan: Stable. Continue autoPAP. Encouraged compliance. (7) Hypertension: Code(s): I10 - Essential (primary) hypertension Status: Chronic Assessment and Plan: Patient's blood pressure was reviewed on 01/29 Blood pressure remains well controlled. Will continue current medications. (8) Breast lump: Code(s): N63.0 - Unspecified lump in unspecified breast Status: Acute Assessment and Plan: R breast with lumps. pt will benefit from urgent MMG on discharge (9) Hypothyroidism: Code(s): E03.9 - Hypothyroidism, unspecified Status: Chronic Assessment and Plan: TSH normal. Continue Synthroid. (10) Hypokalemia: Code(s): E87.6 - Hypokalemia Status: Resolved Assessment and Plan: Resolved (11) DVT prophylaxis: Code(s): Z29.9 - Encounter for prophylactic measures, unspecified Status: Acute Assessment and Plan: Xarelto Subjective Date/time seen: 01/29/21 18:11 Interval history: 75yo female who is morbidly obese with chronic respiratory failure (2L), CHF, COPD and AFib here after being found hypoxic. Please note-Pt has lumps in her right breast. pt will benefit from MMG on discharge. Assuming care. Chart reviewed. Patient slept poorly last night. She did wear the mask when she slept. Denies shortness of breath. No cough. No chest pain. She did feel nauseous today but no vomiting. She has been able to get up to the bedside commode. Exam Narrative:
[2021-01-29] MEDS: MELATONIN 3 MG TABLET PO (21:32)
[2021-01-30] VITALS (12 sets, daily range): BP systolic 112–134; BP diastolic 49–83; PULSE 80–102; RESP 18–24; TEMP 35.9–36.4; O2SAT 92–95
[2021-01-30] MEDS: ALBUTEROL SULFATE NEB 2.5 MG/0.5 ML INH 5 MG INHALATION ×4 (01:37→19:53)
[2021-01-30] MEDS: IPRATROPIUM BR 0.02% INH SOLN 0.5 MG/2.5 ML VIAL INHALATION ×4 (01:37→19:53)
[2021-01-30] MEDS: LEVOTHYROXINE SODIUM 75 MCG TABLET PO (06:02)
[2021-01-30] MEDS: LEVOTHYROXINE SODIUM 100 MCG TABLET PO (06:02)
[2021-01-30] MEDS: FLUTICASONE/SALMETEROL 45-21 MCG INHALER 1 PUFF 2 PUFF INHALATION (08:13)
[2021-01-30] MEDS: POLYSACCHARIDE IRON COMPLEX 150 MG CAPSULE PO (08:29)
[2021-01-30] MEDS: GABAPENTIN 300 MG CAPSULE PO ×3 (08:29→15:57)
[2021-01-30] MEDS: NEBIVOLOL HCL 5 MG TABLET 10 MG PO (08:29)
[2021-01-30] MEDS: SERTRALINE HCL 50 MG TABLET PO (08:30)
[2021-01-30] MEDS: ROFLUMILAST 500 MCG TABLET PO (08:30)
[2021-01-30] MEDS: MAGNESIUM OXIDE 400 MG TABLET PO (08:30)
[2021-01-30] MEDS: MULTIVITAMINS /C LUTEIN (CENTRUM SILVER) TABLET *BKC 1 TAB PO (08:30)
[2021-01-30] MEDS: ASCORBIC ACID 250 MG TABLET PO (08:30)
[2021-01-30] MEDS: OMEGA 3 POLYUNSAT FATTY ACIDS 1 GM CAP PO (08:30)
[2021-01-30] MEDS: DOCUSATE SODIUM 100 MG CAPSULE PO (08:31)
[2021-01-30] MEDS: FUROSEMIDE 40 MG TABLET PO (08:31)
[2021-01-30] MEDS: CHOLECALCIFEROL 1,000 UNITS TABLET 1000 UNITS PO (08:31)
[2021-01-30] MEDS: POTASSIUM CHLORIDE 20 MEQ TABLET.ER PO (08:31)
[2021-01-30] MEDS: guaiFENesin 12 HR 600 MG TABCR 1200 MG PO (08:31)
[2021-01-30] MEDS: SALINE 0.65% NAS SOLN 44 ML BTL 1 SPRAY NASAL ×3 (10:14→15:59)
[2021-01-30] MEDS: predniSONE 20 MG TABLET PO (10:15)
--- NOTE | 2021-01-30 12:39 | PM.DS ---
DS: Admitting Diagnosis Admitting Diagnosis Admitting Diagnosis: Hypoxia DS: Discharge Diagnosis Discharge Diagnosis (1) Acute on chronic respiratory failure with hypoxia and hypercapnia: Code(s): J96.21 - Acute and chronic respiratory failure with hypoxia; J96.22 - Acute and chronic respiratory failure with hypercapnia Status: Acute Assessment and Plan: Prior to admission, patient was found to be hypoxic requiring 4 L of oxygen compare to her regular 2 L of oxygen. ABG 7.4/66/71 on 4L. [place] worsening hypoxia from her CHF and COPD exacerbation. She was started on autoPAP and was compliant with this. We weaned O2 as she tolerated. (2) Acute exacerbation of congestive heart failure: Qualifiers: Heart failure type: diastolic Qualified Code(s): I50.33 - Acute on chronic diastolic (congestive) heart failure Code(s): I50.9 - Heart failure, unspecified Status: Resolved Assessment and Plan: Chest x-ray was consistent with CHF exacerbation. BNP was 1250. Troponin was negative. Patient with known diastolic dysfunction by notes in the physical chart. She was started on IV Lasix with improvement. She has been transitioned oral Lasix. (3) Chronic obstructive pulmonary disease: Code(s): J44.9 - Chronic obstructive pulmonary disease, unspecified Status: Acute Assessment and Plan: Patient was initially on prednisone 60 mg for 6 days that was weaned off. Continue Advair and Daliresp. We continued Mucinex. (4) Urinary tract infection: Code(s): N39.0 - Urinary tract infection, site not specified Status: Acute Assessment and Plan: Urine culture on admission growing Proteus mirabilis sensitive to Rocephin. She completed a course of Rocephin. Repeat urine culture growing VRE but felt to be a contaminant. All antibiotics have been stopped. Appreciate ID input. (5) Atrial fibrillation: Code(s): I48.91 - Unspecified atrial fibrillation Status: Chronic Assessment and Plan: Patient with chronic atrial fibrillation. Heart rate well controlled. We continued Bystolic and Xarelto. (6) Obstructive sleep apnea on CPAP: Code(s): G47.33 - Obstructive sleep apnea (adult) (pediatric); Z99.89 - Dependence on other enabling machines and devices Status: Chronic Assessment and Plan: Stable. We continued autoPAP. We encouraged compliance. (7) Hypertension: Code(s): I10 - Essential (primary) hypertension Status: Chronic Assessment and Plan: Patient's blood pressure was monitored closely. Blood pressure remained well controlled. (8) Breast lump: Code(s): N63.0 - Unspecified lump in unspecified breast Status: Acute Assessment and Plan: Right breast lumps appreciated. Will arrange for outpatient mammogram. (9) Hypothyroidism: Code(s): E03.9 - Hypothyroidism, unspecified Status: Chronic Assessment and Plan: TSH normal. We continued Synthroid. (10) Hypokalemia: Code(s): E87.6 - Hypokalemia Status: Resolved Assessment and Plan: Resolved DS: Summary Hospital Course Reason for hospitalization: 75yo female with CHF and COPD here for hypoxia. Please see H&P for details. Hospital Course: Please see above for details of hospital course. Status at Discharge Cognitive/behavioral status at discharge: stable Time Spent with Patient Time attestation: Total time spent providing and/or coordinating discharge services: 35 minutes Time spent: Greater than 30 minutes Exam Narrative: Exam Narrative: AF 96.6 134/83 88 18 92% 2.5L Gen - NARD Chest - mild bibasilar inspirator crackles that improved with deep inspiration, nml RR CV - Irregularly irregular Abd - Soft, obese, NT, +BS Ext - no pedal edema; negative [facility] - Nml mood and affect Skin - slight blushing to the RLE (felt related to delayed venous r
--- NOTE | 2021-01-30 13:45 | PC.NURSE ---
Discharge instructions and report called to [facility]
[2021-01-30] MEDS: RIVAROXABAN 20 MG TABLET PO (15:58)
--- NOTE | 2021-01-31 00:56 | PC.NURSE ---
01/30/2021 at 2044--Patient discharged to [facility] via ambulance on stretcher, no acute distress noted upon discharge. personal belongings sent with patient, discharge instructions given to patient, verbalized understanding. Janett
== END 2021-01-30 20:40 | DRG 291 ==
LOC: ANHED 16:17 → ANH3MEDSUR 16:57
PROVIDERS: Family Medicine; Internal Medicine; Physician Assistant; Admitting Provider Internal Medicine; Emergency Provider Emergency Medicine; PCP Internal Medicine; Visit Provider Internal Medicine
DX: I13.0 Hypertensive heart and chronic kidney disease with heart failure and stage 1 through stage 4 chronic kidney disease, or unspecified chronic kidney disease (principal); I50.33 Acute on chronic diastolic (congestive) heart failure; J96.21 Acute and chronic respiratory failure with hypoxia; J96.22 Acute and chronic respiratory failure with hypercapnia; I48.20 Chronic atrial fibrillation, unspecified; Z68.43 Body mass index [BMI] 50.0-59.9, adult; J44.1 Chronic obstructive pulmonary disease with (acute) exacerbation; Z20.822 Contact with and (suspected) exposure to COVID-19; R82.71 Bacteriuria; B96.4 Proteus (mirabilis) (morganii) as the cause of diseases classified elsewhere; R32 Unspecified urinary incontinence; G47.33 Obstructive sleep apnea (adult) (pediatric); D72.828 Other elevated white blood cell count; T38.0X5A Adverse effect of glucocorticoids and synthetic analogues, initial encounter; N63.0 Unspecified lump in unspecified breast; E03.9 Hypothyroidism, unspecified; E87.6 Hypokalemia; Z99.89 Dependence on other enabling machines and devices; E66.01 Morbid (severe) obesity due to excess calories; Z79.01 Long term (current) use of anticoagulants
CPT/HCPCS: 36415; 36600; 71045; 80048; 80053; 81001; 82805; 83735; 83880; 84439; 84443; 84480; 84484; 85025; 85027; 87077; 87086; 87088; 87186; 93005; 94640; 96365; 96374; 96375; 96376; 97110; 97116; 97161; 97165; 97530; 97535; 99285; A9270; C9803; G0378; J0696; J1100; J1940; J7120; J7512; U0003; U0005